=== PATIENT | male | born 1975 | race Two or more races ===

== ENCOUNTER 2019-11-17 11:07 | Emergency (ER) | payer MEDICAID ==
[~2019-11-17] VITALS: Ht 167.6 cm; Wt 68.5 kg
[~2019-11-17 11:07] MED LIST: UNOBMED
[2019-11-17 11:16] VITALS: BP 137/87
--- NOTE | 2019-11-17 11:27 | NUR ---
ED Nurse Note: Pt walked in due to left arm injury and pain. per pt, he was hanging from a wall and fell (about 9 foot) and landed on the ground. Denies head injury. States he heard a ''popping sound'' from his left shoulder. AAO x4 and ambulatory.
[2019-11-17] MEDS ORDERED: Morphine Sulfate 4mg/ml Inj (IV USE ONLY) ONE (11:28)
--- NOTE | 2019-11-17 11:28 | Emergency Room Report ---
History of Present Illness General Chief Complaint: Upper Extremity Injury Source: Patient Present Illness HPI Disclaimer: Please note that this report is being documented using DRAGON technology. This can lead to erroneous entry secondary to incorrect interpretation by the dictating instrument. HPI: 44-year-old male presents for evaluation of left shoulder pain. The patient was hopping a fence last night hanging from the top of the fence approximately 9 feet off the ground. He felt a popping sensation his left shoulder and dropped to the ground. There is no head injury or impact on the shoulder itself. Noted significant 10/10 pain that radiated down the left arm. Denies numbness or tingling. Has full strength in the hand, wrist, elbow though limited due to pain. Limitation range of motion in the elbow due to pain. No limitation at the wrist or hand. No other injuries reported. No prior history of injury. PMH: Denies PSH: Denies Allergies: Denies Social Hx: Denies Allergies: Coded Allergies: NO KNOWN ALLERGIES (Verified Allergy, Unknown, 07/04/19) COVID-19 Screening Contact w/high risk pt: No Recent Travel to affected area: No Experienced COVID-19 symptoms?: No Nursing Documentation-PMH Past Medical History: No History, Except For Review of Systems All Other Systems: negative except mentioned in HPI Physical Exam Vital Signs Date Time Temp Pulse Resp B/P (MAP) Pulse Ox O2 Delivery O2 Flow Rate FiO2 11/17/19 11:16 97.9 90 16 137/87 (104) 97 Room Air General: Awake and alert, no acute distress HEENT: NC/AT. EOMI. Resp: Normal work of breathing Skin: Intact. No abrasions, laceration or rash over the exposed skin MSK: Normal tone and bulk. Moving all extremities. No obvious deformity. Patient holding his left arm in flexion across his body. No step-off or palpable deformity. Significant pain with palpation over the anterior and superior portion of the left shoulder. Sensation intact over the deltoid. Able to pronate, supinate, flex and extend at the wrist. Able to flex and extend all digits. Brisk capillary refill and 2+ radial pulse. Neuro: Awake and alert. Mentating appropriately Medical Decision Making Diagnostic Impression: Primary Impression: Shoulder injury ER Course 44-year-old male presents for evaluation of left shoulder pain. Concern for fracture dislocation and x-ray was obtained. No current dislocation and no fracture identified. Patient is neurovascularly intact. I suspect that he dislocated his shoulder while hanging yesterday and then relocated spontaneously. Will place in an immobilizer discharged with pain medication and have him follow-up with orthopedic surgery on an outpatient basis. We discussed reasons to return to the emergency department and need for reevaluation with orthopedic surgery. Also discussed limiting physical activity until he is cleared to return by physician. He understands and agrees with the treatment plan will be discharged home. Other X-Ray Diagnostic Results Other X-Ray Diagnostic Results : X-Ray ordered: Left shoulder # of Views/Limited Vs Complete: 3 View Indication: Pain EP Interpretation: Yes Interpretation: no dislocation, no soft tissue swelling, no fractures Impression: No acute disease Electronically Signed by: Electronically signed by Dr. Jet Diaz Last Vital Signs Date Time Temp Pulse Resp B/P (MAP) Pulse Ox O2 Delivery O2 Flow Rate FiO2 11/17/19 11:16 97.9 90 16 137/87 (104) 97 Room Air Disposition: HOME, SELF-CARE Condition: Stable Scripts Hydrocodone Bit/Acetaminophen 5-325* (NORCO 5-325 TABLET*) 1 Each Tablet 1 TAB ORAL Q6H PRN for FOR PAIN, #10 TAB 0 Refills Prov: Jet Diaz MD 11/17/19 Ibuprofen* (MOTRIN*) 600 Mg Tablet 600 MG ORAL Q6H PRN for For Pain, #30 TAB 0 Refills Prov: Jet Diaz MD 11/17/19 Jet Diaz MD Nov 17, 2019 11:28
[2019-11-17] MEDS ORDERED: Morphine Sulfate 2mg/ml Inj(IV/IM USE ONLY) IM ONE (11:30)
[2019-11-17] MEDS ORDERED: Morphine Sulfate 4mg/ml Inj (IV USE ONLY) IVP ONE (11:45)
--- NOTE | 2019-11-17 12:22 | Diagnostic Imaging Report ---
Indication: Left shoulder pain, trauma Technique: 3 views of the left shoulder Comparison: none Findings: No acute fractures. No dislocations. The joint spaces are preserved Impression: Negative
[2019-11-17] MEDS ORDERED: IBUPROFEN600 M1 ORAL (12:29)
[2019-11-17] MEDS ORDERED: NORCO 5-325 TA1 EAC1 ORAL (12:29)
[2019-11-17 12:49] VITALS: BP 124/85
--- NOTE | 2019-11-17 12:49 | NUR ---
ER DISCHARGE NOTE: Patient is cleared to be discharged per ERMD, pt is aox4, on room air, with stable vital signs. pt was given dc and prescription instructions, pt was able to verbalize understanding, pt id band and iv site removed without complications. pt is able to ambulate with steady gait. pt took all belongings.
== END 2019-11-17 12:49 | disposition home or self-care (01) ==
LOC: EMR 11:44
DX: S49.92XA Unspecified injury of left shoulder and upper arm, initial encounter (principal); X58.XXXA Exposure to other specified factors, initial encounter; Y92.9 Unspecified place or not applicable
CPT/HCPCS: 29105; 73030; 96374; J2270; Z7502; 99284

== ENCOUNTER 2020-03-15 20:27 | Inpatient (IN) | payer MEDICAID, OTHER ==
[~2020-03-15] VITALS: Ht 167.6 cm; Wt 67.6 kg
[~2020-03-15 20:27] MED LIST changes: +IBUPROFEN600 M1 ORAL; +NORCO 5-325 TA1 EAC1 ORAL
[2020-03-15 20:30] VITALS: BP 135/100
--- NOTE | 2020-03-15 21:11 | Emergency Room Report ---
History of Present Illness General Chief Complaint: Substance Abuse Source: Patient, Medical Record, EMS (Nelly CoronaVicente ) Present Illness HPI This patient is brought in in custody by [place] police department. When this patient was being booked, it was noted that he had an elevated heart rate. The [place] police department personnel were concerned about his vital signs and wanted him to be assessed to be cleared for booking. The patient himself is intoxicated and unable to articulate any specific complaints. (Nelly CoronaVicente ) Allergies: Coded Allergies: NO KNOWN ALLERGIES (Verified Allergy, Unknown, 07/04/19) UNABLE TO ASSESS (Unverified , 03/15/20) COVID-19 Screening Contact w/high risk pt: No Recent Travel to affected area: No Experienced COVID-19 symptoms?: No COVID-19 Testing performed [employer] PROGRAM SPECIALIST: No (Nelly CoronaVicente ) Patient History Past Medical History: see triage record, HIV, other - HCV Social History: Reports: drug use Reviewed Nursing Documentation: PMH: Agreed; PSxH: Agreed (Nelly CoronaVicente ) Review of Systems All Other Systems: negative except mentioned in HPI (Nelly CoronaVicente ) Physical Exam Vital Signs Date Time Temp Pulse Resp B/P (MAP) Pulse Ox O2 Delivery O2 Flow Rate FiO2 03/15/20 20:21 99.0 124 16 135/100 (112) 98 Room Air Sp02 EP Interpretation: reviewed, normal General Appearance: no apparent distress, alert, GCS 15, non-toxic Head: normocephalic, atraumatic Eyes: bilateral eye normal inspection, bilateral eye PERRL ENT: hearing grossly normal, normal pharynx, no angioedema, normal voice Neck: full range of motion, supple/symm/no masses Respiratory: chest non-tender, lungs clear, normal breath sounds, speaking full sentences Cardiovascular #1: regular rate, rhythm, no edema Gastrointestinal: normal bowel sounds, non tender, soft, non-distended, no guarding, no rebound Rectal: deferred Genitourinary: normal inspection, no CVA tenderness Musculoskeletal: back normal, normal range of motion, calf tenderness, gait/ station normal, non-tender Neurologic: alert, motor strength/tone normal, oriented x3, sensory intact, responsive, speech normal Psychiatric: judgement/insight normal, memory normal, mood/affect normal, no suicidal/homicidal ideation Reflexes: 3+ bicep (R), 3+ bicep (L), 3+ tricep (R), 3+ tricep (L), 3+ knee (R) , 3+ knee (L) Lymphatic: no adenopathy (Nelly Corona ) Procedures Critical Care Time Critical Care Time Total critical care time: Approximately 45 minutes Due to a high probability of clinically significant, life threatening deterioration, the patient required the highest level of preparedness to intervene emergently and I personally spent this critical care time directly and personally managing the patient. This critical care time included obtaining a history, examining the patient, pulse oximetry, ordering and reviewing studies , ordering treatments, evaluating response to treatment and updating management plan as needed, frequent reassessment and discussion with other providers as well as arranging for ultimate disposition. This critical to care time was performed to assess and manage the high probability of life-threatening deterioration that could result in multiorgan failure. This critical care time is separate from the separately billable procedures and treating other patients. (Jet Diaz MD) Medical Decision Making Diagnostic Impression: Primary Impression: Drug abuse Additional Impressions: Respiratory failure Rhabdomyolysis ER Course Assumed care of the patient from the previous provider at approximately 2300 hrs. Please refer to initial note for full history and physical exam. Briefly, this is a 44-year-old male presenting originally with [employer] on suspicion of trespassing however the patient is not under arrest and appears that this was a mistaken identity. He was found to have acute kidney injury likely secondary to rhabdomyolysis from methamphetamine use which he admits. CT scan of the head was negative. The patient started on IV fluids and admitted to panel physician, Dr. Morin. (Jet Diaz MD) Last Vital Signs Date Time Temp Pulse Resp B/P (MAP) Pulse Ox O2 Delivery O2 Flow Rate FiO2 03/15/20 20:30 124 16 Room Air 03/15/20 20:30 99.0 135/100 98 (Nelly Corona DO) Disposition: ADMITTED INPATIENT Condition: Serious Referrals: NOT CHOSEN IPA/,REFERRING (PCP) Nelly Corona Vicente DOMINGUEZ Mar 15, 2020 21:11 Jet Diaz MD Mar 16, 2020 03:23
[2020-03-15 21:33] LABS: HEMATOCRIT 45.6 % (42.0-52.0); HEMOGLOBIN 14.9 G/DL (14.2-18.0); MEAN CORPUSCULAR VOLUME 97 FL (80-99); PLATELET COUNT 177 K/UL (150-450); RED BLOOD COUNT 4.69 M/UL (4.70-6.10); RED CELL DISTRIBUTION WIDTH 12.2 % (11.6-14.8); WHITE BLOOD COUNT 10.5 K/UL (4.8-10.8)
[2020-03-15 21:35] LABS: BASOPHILS % (AUTO) 0.2 % (0.0-2.0); LYMPHOCYTES % (AUTO) 9.2 % (20.0-45.0); MONOCYTES % (AUTO) 5.6 % (1.0-10.0)
[2020-03-15 21:45] LABS: ANION GAP 15 mmol/L (5-15); BLOOD UREA NITROGEN 31 mg/dL (7-18); CALCIUM 9.3 MG/DL (8.5-10.1); CARBON DIOXIDE 24 MMOL/L (21-32); CHLORIDE 101 MMOL/L (98-107); CREATININE 4.1 MG/DL (0.55-1.30); POTASSIUM 4.9 MMOL/L (3.5-5.1); SODIUM 140 MMOL/L (136-145)
[2020-03-15 21:50] LABS: ALANINE AMINOTRANSFERASE 59 U/L (12-78); ALBUMIN 4.7 G/DL (3.4-5.0); ALBUMIN/GLOBULIN RATIO 0.9 (1.0-2.7); ALKALINE PHOSPHATASE 108 U/L (46-116); ASPARTATE AMINO TRANSFERASE 93 U/L (15-37); BILIRUBIN,TOTAL 0.6 MG/DL (0.2-1.0)
--- NOTE | 2020-03-15 23:01 | Diagnostic Imaging Report ---
EXAM: CT Head Without Intravenous Contrast CLINICAL HISTORY: AMS TECHNIQUE: Axial computed tomography images of the head/brain without intravenous contrast. CTDI is 53.4 mGy and DLP is 1045.5 mGy-cm. One or more of the following dose reduction techniques were used: automated exposure control, adjustment of the mA and/or kV according to patient size, use of iterative reconstruction technique. COMPARISON: No relevant prior studies available. FINDINGS: Brain: No hemorrhage. No edema. Ventricles: No ventriculomegaly. Bones/joints: No acute fracture. Soft tissues: Unremarkable. Sinuses: No acute sinusitis. Mastoid air cells: No mastoid effusion. IMPRESSION: No acute intracranial process. MRI is more sensitive if warranted.
[2020-03-15 23:19] LABS: CREATINE KINASE 1537 U/L (26-308)
[2020-03-15 23:28] LABS: APPEARANCE,URINE CLEAR; BILIRUBIN, URINE NEGATIVE (NEGATIVE); GLUCOSE, URINE (UA) NEGATIVE (NEGATIVE); KETONES,URINE NEGATIVE (NEGATIVE); LEUKOCYTE ESTERASE ,URINE NEGATIVE (NEGATIVE); NITRITE,URINE NEGATIVE (NEGATIVE); PH,URINE 6 (4.5-8.0); PROTEIN,URINE 3+ (NEGATIVE); UROBILINOGEN,URINE NORMAL MG/DL (0.0-1.0)
[2020-03-15 23:32] LABS: COLOR,URINE YELLOW
[2020-03-15 23:35] VITALS: BP 141/96
[2020-03-16 00:30] VITALS: BP 156/69
[2020-03-16 04:00] VITALS: BP 147/91
[2020-03-16] MEDS ORDERED: HYDROcodone/Acetamin 5/325 tab ORAL PRN (06:30)
[2020-03-16] MEDS ORDERED: D5 1/2NS 1,000 ML IV SCH (07:00)
[2020-03-16] MEDS ORDERED: Heparin 5000 units/ml inj SUBQ SCH (09:00)
--- NOTE | 2020-03-16 18:07 | History & Physical ---
History and Physical History & Physicial patient left hospital AMA prior my visit. Bassem Morin MD Mar 16, 2020 18:07
--- NOTE | 2020-03-18 12:05 | Discharge Summary ---
Discharge Summary Discharge Summary _ DATE OF ADMISSION: 03/15/2020 DATE OF DISCHARGE: 03/16/2020 BRIEF HOSPITAL COURSE: Patient is a 44-year-old male, who was brought in by [employer] [place] [employer] to the hospital. When patient was being booked, he was noted to have an elevated heart rate. The [employer] personnel were concerned about his vital signs and wanted him to be assessed to be cleared for booking. The patient himself was intoxicated and unable to articulate any specific complaints. Upon evaluation at ER, blood pressure was 135/100, heart rate 124. Blood work showed no leukocytosis, creatinine elevated to 4.1. Total CK 1537. Urine toxicology was positive for amphetamine. Head CT did not show any acute intracranial process. He was started on IV fluids. He was admitted for drug abuse and rhabdomyolysis. Patient was taken off police custody. Patient was admitted to monitored floor. Full treatment was not carried out as patient left AGAINST MEDICAL ADVICE. FINAL DIAGNOSES: Renal failure Rhabdomyolysis Drug abuse DISPOSITION: Patient left AMA. I have been assigned to complete a discharge summary on this account, I was not involved with the patient's management.--YO Santiago Jacqueline Robles NP Mar 18, 2020 12:05
== END 2020-03-16 09:50 | disposition left against medical advice (07) | DRG 470 ==
LOC: EDBD 20:27 → EMR 20:50 → 4E 22:40 → EDBEDREQ 23:43
DX: N19 Unspecified kidney failure (principal); M62.82 Rhabdomyolysis; F15.129 Other stimulant abuse with intoxication, unspecified
CPT/HCPCS: 36415; 70450; 80053; 80307; 81003; 82550; 82570; 83935; 84133; 84300; 85025; 96360; 96361; 99291; J7030

== ENCOUNTER 2020-03-18 00:01 | Inpatient (IN) | payer MEDICAID, OTHER ==
[~2020-03-18] VITALS: Ht 162.6 cm; Wt 151.0 kg
[2020-03-18] VITALS (7 sets, daily range): BP systolic 112–126; BP diastolic 67–77
--- NOTE | 2020-03-18 00:41 | Emergency Room Report ---
History of Present Illness General Chief Complaint: Male Urogenital Problems Present Illness HPI 44-year-old male with history of HIV noncompliant with medications, recent diagnosis 2 days ago of acute kidney injury and methamphetamine use and rhabdomyolysis, here with lightheadedness. The patient was admitted 24 hours ago to the hospital for an ANTONIO in the setting of rhabdomyolysis. However soon after he arrived on the floor he left AGAINST MEDICAL ADVICE before he was seen by the admitting physician. Patient says that he has been sleeping on the street for the past 24 hours. He says that now he is feeling lightheaded. He said that his urine was also dark today. Denies fevers, chills, headache, vision changes, focal numbness or weakness, chest pain, palpitation, shortness of breath, back pain, abdominal pain, nausea, vomiting, diarrhea, dysuria. Allergies: Coded Allergies: NO KNOWN ALLERGIES (Verified Allergy, Unknown, 07/04/19) COVID-19 Screening Contact w/high risk pt: No Recent Travel to affected area: No Experienced COVID-19 symptoms?: No COVID-19 Testing performed SEAM STAYER: No Nursing Documentation-PMH Hx Cardiac Problems: No - hep c, hiv Hx Cancer: No Hx Gastrointestinal Problems: No Hx Neurological Problems: Yes Hx Concentration Difficulty: Yes Review of Systems All Other Systems: negative except mentioned in HPI Physical Exam Vital Signs Date Time Temp Pulse Resp B/P (MAP) Pulse Ox O2 Delivery O2 Flow Rate FiO2 03/18/20 00:16 98.6 70 22 114/67 (83) 98 Room Air Sp02 EP Interpretation: reviewed, normal General Appearance: no apparent distress, alert, non-toxic Head: normocephalic, atraumatic Eyes: bilateral eye normal inspection, bilateral eye PERRL ENT: hearing grossly normal, normal pharynx, no angioedema, normal voice Neck: full range of motion, supple/symm/no masses Respiratory: chest non-tender, lungs clear, normal breath sounds, speaking full sentences Cardiovascular #1: regular rate, rhythm, no edema Cardiovascular #2: 2+ carotid (R), 2+ carotid (L), 2+ radial (R), 2+ radial (L) , 2+ dorsalis pedis (R), 2+ dorsalis pedis (L) Gastrointestinal: normal bowel sounds, non tender, soft, non-distended, no guarding, no rebound Rectal: deferred Genitourinary: normal inspection, no CVA tenderness Musculoskeletal: back normal, normal range of motion, calf tenderness, gait/ station normal, non-tender Neurologic: alert, motor strength/tone normal, oriented x3, sensory intact, responsive, speech normal Psychiatric: judgement/insight normal, memory normal, mood/affect normal, no suicidal/homicidal ideation, other - Appears anxious and slightly agitated, but is redirectable and cooperative with examination Lymphatic: no adenopathy Medical Decision Making Diagnostic Impression: Primary Impression: Substance abuse Additional Impressions: Rhabdomyolysis ANTONIO (acute kidney injury) ER Course Laboratory Tests Test 03/18/20 00:40 White Blood Count 5.6 K/UL (4.8-10.8) Red Blood Count 4.57 M/UL (4.70-6.10) L Hemoglobin 14.8 G/DL (14.2-18.0) Hematocrit 41.9 % (42.0-52.0) L Mean Corpuscular Volume 92 FL (80-99) Mean Corpuscular Hemoglobin 32.4 PG (27.0-31.0) H Mean Corpuscular Hemoglobin Concent 35.2 G/DL (32.0-36.0) Red Cell Distribution Width 10.8 % (11.6-14.8) L Platelet Count 175 K/UL (150-450) Mean Platelet Volume 7.1 FL (6.5-10.1) Neutrophils (%) (Auto) 46.8 % (45.0-75.0) Lymphocytes (%) (Auto) 40.8 % (20.0-45.0) Monocytes (%) (Auto) 9.0 % (1.0-10.0) Eosinophils (%) (Auto) 2.7 % (0.0-3.0) Basophils (%) (Auto) 0.7 % (0.0-2.0) Urine Color Yellow Urine Appearance Clear Urine pH 5 (4.5-8.0) Urine Specific [place] 1.025 (1.005-1.035) Urine Protein 1+ (NEGATIVE) H Urine Glucose (UA) 1+ (NEGATIVE) H Urine Ketones Negative (NEGATIVE) Urine Blood 2+ (NEGATIVE) H Urine Nitrite Negative (NEGATIVE) Urine Bilirubin Negative (NEGATIVE) Urine Urobilinogen Normal MG/DL (0.0-1.0) Urine Leukocyte Esterase Negative (NEGATIVE) Urine RBC 5-10 /HPF (0 - 0) H Urine WBC 0-2 /HPF (0 - 0) Urine Squamous Epithelial Cells Occasional /LPF Urine Amorphous Sediment Few /LPF (NONE) H Urine Bacteria Few /HPF (NONE) Urine Mucus Few /LPF (NONE/OCC) H Sodium Level 139 MMOL/L (136-145) Potassium Level 3.5 MMOL/L (3.5-5.1) Chloride Level 102 MMOL/L (98-107) Carbon Dioxide Level 31 MMOL/L (21-32) Anion Gap 6 mmol/L (5-15) Blood Urea Nitrogen 37 mg/dL (7-18) H Creatinine 1.9 MG/DL (0.55-1.30) H Estimated Glomerular Filtration Rate 39.1 mL/min (>60) Glucose Level 77 MG/DL (74-106) Calcium Level 8.8 MG/DL (8.5-10.1) Total Bilirubin 0.6 MG/DL (0.2-1.0) Aspartate Amino Transferase (AST) 102 U/L (15-37) H Alanine Aminotransferase (ALT) 70 U/L (12-78) Alkaline Phosphatase 136 U/L (46-116) H Total Creatine Kinase 1592 U/L (26-308) H Total Protein 8.5 G/DL (6.4-8.2) H Albumin 3.9 G/DL (3.4-5.0) Globulin 4.6 g/dL Albumin/Globulin Ratio 0.8 (1.0-2.7) L Urine Opiates Screen Negative (NEGATIVE) Urine Barbiturates Screen Negative (NEGATIVE) Phencyclidine (PCP) Screen Negative (NEGATIVE) Urine Amphetamines Screen Positive (NEGATIVE) H Urine Benzodiazepines Screen Negative (NEGATIVE) Urine Cocaine Screen Negative (NEGATIVE) Urine Marijuana (THC) Screen Negative (NEGATIVE) Serum Alcohol < 3 mg/dL 44-year-old male here after leaving his medical advice yesterday after being diagnosed with rhabdomyolysis and acute kidney injury. Patient said "my urine was dark so I came back." He was in no distress in the emergency department and ambulating throughout the ER and tolerating p.o. without any difficulty whatsoever. CBC unremarkable. CMP shows acute kidney injury but slightly improved from his most recent lab results yesterday. He had elevated creatinine kinase was also was slightly improved from yesterday but still highly elevated. Patient received 2 L of IV normal saline in the emergency department. He was once again admitted for rhabdomyolysis and acute kidney injury. Total critical care time: Approximately 30 minutes Due to a high probability of clinically significant, life threatening deterioration, the patient required the highest level of preparedness to intervene emergently and I personally spent this critical care time directly and personally managing the patient. This critical care time included obtaining a history, examining the patient, pulse oximetry, ordering and reviewing studies , ordering treatments, evaluating response to treatment and updating management plan as needed, frequent reassessment and discussion with other providers as well as arranging for ultimate disposition. This critical to care time was performed to assess and manage the high probability of life-threatening deterioration that could result in multiorgan failure. This critical care time is separate from the separately billable procedures and treating other patients. Last Vital Signs Date Time Temp Pulse Resp B/P (MAP) Pulse Ox O2 Delivery O2 Flow Rate FiO2 03/18/20 00:16 98.6 70 22 114/67 (83) 98 Room Air José West M.D. Mar 18, 2020 00:41
[2020-03-18 00:54] LABS: APPEARANCE,URINE CLEAR; BILIRUBIN, URINE NEGATIVE (NEGATIVE); COLOR,URINE YELLOW; GLUCOSE, URINE (UA) 1+ (NEGATIVE); KETONES,URINE NEGATIVE (NEGATIVE); LEUKOCYTE ESTERASE ,URINE NEGATIVE (NEGATIVE); NITRITE,URINE NEGATIVE (NEGATIVE); PH,URINE 5 (4.5-8.0); PROTEIN,URINE 1+ (NEGATIVE); UROBILINOGEN,URINE NORMAL MG/DL (0.0-1.0)
[2020-03-18 00:56] LABS: BASOPHILS % (AUTO) 0.7 % (0.0-2.0); EOSINOPHILS % (AUTO) 2.7 % (0.0-3.0); HEMATOCRIT 41.9 % (42.0-52.0); HEMOGLOBIN 14.8 G/DL (14.2-18.0); LYMPHOCYTES % (AUTO) 40.8 % (20.0-45.0); MEAN CORPUSCULAR VOLUME 92 FL (80-99); NEUTROPHILS % (AUTO) 46.8 % (45.0-75.0); PLATELET COUNT 175 K/UL (150-450); RED BLOOD COUNT 4.57 M/UL (4.70-6.10); RED CELL DISTRIBUTION WIDTH 10.8 % (11.6-14.8); WHITE BLOOD COUNT 5.6 K/UL (4.8-10.8)
[2020-03-18 01:05] LABS: ANION GAP 6 mmol/L (5-15); BLOOD UREA NITROGEN 37 mg/dL (7-18); CALCIUM 8.8 MG/DL (8.5-10.1); CARBON DIOXIDE 31 MMOL/L (21-32); CHLORIDE 102 MMOL/L (98-107); CREATININE 1.9 MG/DL (0.55-1.30); POTASSIUM 3.5 MMOL/L (3.5-5.1); SODIUM 139 MMOL/L (136-145)
[2020-03-18 01:19] LABS: ALANINE AMINOTRANSFERASE 70 U/L (12-78); ALBUMIN 3.9 G/DL (3.4-5.0); ALBUMIN/GLOBULIN RATIO 0.8 (1.0-2.7); ALKALINE PHOSPHATASE 136 U/L (46-116); ASPARTATE AMINO TRANSFERASE 102 U/L (15-37); BILIRUBIN,TOTAL 0.6 MG/DL (0.2-1.0); CREATINE KINASE 1592 U/L (26-308)
[2020-03-18] MEDS ORDERED: Omnipaque 350 100ml vial INJ PRN (02:00)
[2020-03-18 06:02] LABS: EOSINOPHILS % (AUTO) 3.5 % (0.0-3.0); HEMATOCRIT 40.3 % (42.0-52.0); HEMOGLOBIN 13.8 G/DL (14.2-18.0); LYMPHOCYTES % (AUTO) 40.3 % (20.0-45.0); MEAN CORPUSCULAR VOLUME 93 FL (80-99); MONOCYTES % (AUTO) 9.6 % (1.0-10.0); NEUTROPHILS % (AUTO) 45.6 % (45.0-75.0); PLATELET COUNT 152 K/UL (150-450); RED BLOOD COUNT 4.35 M/UL (4.70-6.10); RED CELL DISTRIBUTION WIDTH 10.8 % (11.6-14.8); WHITE BLOOD COUNT 4.2 K/UL (4.8-10.8)
[2020-03-18 06:10] LABS: ALANINE AMINOTRANSFERASE 54 U/L (12-78); ALBUMIN 3.2 G/DL (3.4-5.0); ALBUMIN/GLOBULIN RATIO 0.8 (1.0-2.7); ALKALINE PHOSPHATASE 111 U/L (46-116); ANION GAP 7 mmol/L (5-15); ASPARTATE AMINO TRANSFERASE 78 U/L (15-37); BILIRUBIN,TOTAL 0.3 MG/DL (0.2-1.0); BLOOD UREA NITROGEN 32 mg/dL (7-18); CALCIUM 7.9 MG/DL (8.5-10.1); CARBON DIOXIDE 27 MMOL/L (21-32); CHLORIDE 105 MMOL/L (98-107); CREATININE 1.4 MG/DL (0.55-1.30); PHOSPHORUS 6.5 MG/DL (2.5-4.9); POTASSIUM 3.8 MMOL/L (3.5-5.1); SODIUM 139 MMOL/L (136-145)
[2020-03-18] MEDS ORDERED: D5 1/2NS 1,000 ML IV SCH (06:45)
[2020-03-18] MEDS ORDERED: D5 1/2NS w/KCL 10meq 1,000 ML IV SCH (07:00)
[2020-03-18 08:38] LABS: CREATINE KINASE 998 U/L (26-308); PHOSPHORUS 3.9 MG/DL (2.5-4.9)
--- NOTE | 2020-03-18 09:18 | Consultation ---
Consult Note Consult Note I am asked to evaluate the patient at the request of Dr. Luis for renal failure 44-year-old male with history of HIV noncompliant with medications, recent diagnosis 2 days ago of acute kidney injury and methamphetamine use and rhabdomyolysis, here with lightheadedness. The patient was admitted 24 hours ago to the hospital for an ANTONIO in the setting of rhabdomyolysis. However soon after he arrived on the floor he left AGAINST MEDICAL ADVICE before he was seen by the admitting physician. Patient says that he has been sleeping on the street for the past 24 hours. He says that now he is feeling lightheaded. He said that his urine was also dark today. Denies fevers, chills, headache, vision changes, focal numbness or weakness, chest pain, palpitation, shortness of breath, back pain, abdominal pain, nausea, vomiting, diarrhea, dysuria. NO KNOWN ALLERGIES (Verified Allergy, Unknown, 07/04/19) COVID-19 Screening Contact w/high risk pt: No Recent Travel to affected area: No Experienced COVID-19 symptoms?: No COVID-19 Testing performed MOTOR[employer]ED [employer] COMMANDING OFFICER: No Hx Cardiac Problems: No - hep c, hiv Hx Neurological Problems: Yes Hx Concentration Difficulty: Yes Assessment/Plan ANTONIO, patient admitted 2 days ago with creatinine of 4 but signed AMA. Presents with serum creatinine of 1.9 Rhabdomyolysis HIV positive Hepatitis C per history Substance abuse Suggestions Vigorous hydration Monitor renal parameters and CPK Per orders Roberto Stewart MD Mar 18, 2020 09:18
[2020-03-18] MEDS ORDERED: HydrALAZINE 25mg tab ORAL PRN (09:28)
[2020-03-18] MEDS: Heparin 5000 units/ml inj SUBQ SCH ×2 (10:58→21:37)
[2020-03-18] MEDS: D5 1/2NS 1,000 ML IV SCH ×2 (10:59→17:09)
--- NOTE | 2020-03-18 12:44 | History and Physical Report ---
DATE OF ADMISSION: 03/18/2020 TIME SEEN: 8 a.m. CONSULTANTS: 1. Roxanna Hanson MD. 2. Roberto Stewart MD. CHIEF COMPLAINT: Drug abuse, ANTONIO, rhabdomyolysis. BRIEF HISTORY: The patient is a 44-year-old male, who lives in his car presents to [place] ER last night with increased weakness, lethargy, slightly confused was diagnosed with ANTONIO, rhabdo, and drug abuse and admitted to medical floor. Currently, calm, in bed, no complaints. No chest pain, no shortness of breath. No nausea, vomiting, or diarrhea. PAST MEDICAL HISTORY: Includes HIV. PAST SURGICAL HISTORY: MEDICATIONS: Heparin, dextrose, IV fluids. ALLERGIES: Denies. SOCIAL HISTORY: No smoking. Positive alcohol. Positive meth use. OBJECTIVE: GENERAL: Calm in bed, oriented x2, in no acute distress. VITAL SIGNS: Temperature is 97 degrees, pulse 73, respiratory rate 18, blood pressure 122/77 CARDIOVASCULAR: No murmur. LUNGS: Distant and clear. ABDOMEN: Bowel sounds positive. Soft, nontender, nondistended. EXTREMITIES: No cyanosis or edema. NEUROLOGIC: The patient moves all extremities, slightly weak. LABORATORY DATA: Labs at this time show white count 4.2, hemoglobin and hematocrit 13/40, platelets 152. BMP shows BUN and creatinine 32 and 1.4. Calcium 7.9, phosphorus 6.5. AST 78. Albumin 3.2. Urinalysis show 2+ blood, 1+ glucose, 1+ protein. Urine tox positive for amphetamine. ASSESSMENT: 1. ANTONIO. 2. Drug abuse. 3. Rhabdomyolysis. PLAN: 1. Detox. 2. Dietary followup. 3. IV fluids. 4. CBC and BMP in the morning. 5. Psych and Nephrology followup. Andrea Luis D.O. DR: Timur JOB#: [id number] CC:
[2020-03-18] MEDS: Docusate 100mg cap ORAL SCH ×2 (13:44→17:15)
[2020-03-18] MEDS ORDERED: D5 1/2NS 1000ml IV ONE (15:32)
[2020-03-19] VITALS: BP 121/69
[2020-03-19] MEDS: D5 1/2NS 1,000 ML IV SCH ×3 (02:27→10:58)
[2020-03-19 04:00] VITALS: BP 113/76
[2020-03-19 06:02] LABS: EOSINOPHILS % (AUTO) 3.3 % (0.0-3.0); HEMATOCRIT 42.3 % (42.0-52.0); HEMOGLOBIN 14.4 G/DL (14.2-18.0); LYMPHOCYTES % (AUTO) 36.8 % (20.0-45.0); MEAN CORPUSCULAR VOLUME 93 FL (80-99); MONOCYTES % (AUTO) 9.4 % (1.0-10.0); NEUTROPHILS % (AUTO) 49.5 % (45.0-75.0); PLATELET COUNT 160 K/UL (150-450); RED BLOOD COUNT 4.56 M/UL (4.70-6.10); RED CELL DISTRIBUTION WIDTH 10.9 % (11.6-14.8); WHITE BLOOD COUNT 4.1 K/UL (4.8-10.8)
[2020-03-19 06:10] LABS: ALANINE AMINOTRANSFERASE 49 U/L (12-78); ALBUMIN 3.1 G/DL (3.4-5.0); ALBUMIN/GLOBULIN RATIO 0.7 (1.0-2.7); ALKALINE PHOSPHATASE 121 U/L (46-116); ANION GAP 5 mmol/L (5-15); ASPARTATE AMINO TRANSFERASE 46 U/L (15-37); BILIRUBIN,TOTAL 0.3 MG/DL (0.2-1.0); BLOOD UREA NITROGEN 20 mg/dL (7-18); CALCIUM 8.6 MG/DL (8.5-10.1); CARBON DIOXIDE 28 MMOL/L (21-32); CHLORIDE 104 MMOL/L (98-107); CHOLESTEROL 176 MG/DL (< 200); CREATININE 1.3 MG/DL (0.55-1.30); HDL CHOLESTEROL 53 MG/DL (40-60); POTASSIUM 4.2 MMOL/L (3.5-5.1); SODIUM 137 MMOL/L (136-145); TRIGLYCERIDES 110 MG/DL (30-150)
[2020-03-19 06:17] LABS: CREATINE KINASE 352 U/L (26-308); GAMMA GLUTAMYL TRANSPEPTIDASE 10 U/L (5-85); PHOSPHORUS 3.7 MG/DL (2.5-4.9)
[2020-03-19 08:00] VITALS: BP 125/74
[2020-03-19] MEDS: Docusate 100mg cap ORAL SCH ×3 (08:36→17:42)
[2020-03-19] MEDS: Heparin 5000 units/ml inj SUBQ SCH ×2 (08:38→20:42)
--- NOTE | 2020-03-19 08:49 | General Progress Note ---
Assessment/Plan Problem List: (1) Weak ICD Codes: R53.1 - Weakness SNOMED: 52551591 (2) Drug abuse ICD Codes: F19.10 - Other psychoactive substance abuse, uncomplicated SNOMED: 33671802 (3) ANTONIO (acute kidney injury) ICD Codes: N17.9 - Acute kidney failure, unspecified SNOMED: 83319479, 5483890 (4) Rhabdomyolysis ICD Codes: M62.82 - Rhabdomyolysis SNOMED: 709474057 Status: unchanged Assessment/Plan: pt diet detox ivf cbc bmp am Subjective Constitutional: Reports: weakness Allergies: Coded Allergies: NO KNOWN ALLERGIES (Verified Allergy, Unknown, 07/04/19) All Systems: reviewed and negative except above Subjective sleepy calm Objective Last 24 Hour Vital Signs Date Time Temp Pulse Resp B/P (MAP) Pulse Ox O2 Delivery O2 Flow Rate FiO2 03/19/20 08:00 97.7 68 18 125/74 (91) 97 03/19/20 04:00 98.6 77 16 113/76 (88) 98 03/19/20 00:00 98.4 74 15 121/69 (86) 98 03/18/20 21:00 Room Air 03/18/20 20:00 98.6 80 18 119/73 (88) 98 03/18/20 16:00 97.4 73 16 126/74 (91) 100 03/18/20 13:45 98.1 77 16 112/70 (84) 99 03/18/20 10:54 97.8 67 16 113/76 (88) 100 03/18/20 09:00 Room Air Intake and Output 03/18/20 03/19/20 19:00 07:00 Intake Total 2100 ml 2000 ml Balance 2100 ml 2000 ml Intake Oral 1000 ml 750 ml IV Total 1100 ml 1250 ml # Voids 4 8 # Bowel Movements 2 Laboratory Tests 03/19/20 05:20: White Blood Count 4.1L, Red Blood Count 4.56L, Hemoglobin 14.4, Hematocrit 42.3 , Mean Corpuscular Volume 93, Mean Corpuscular Hemoglobin 31.5H, Mean Corpuscular Hemoglobin Concent 34.0, Red Cell Distribution Width 10.9L, Platelet Count 160, Mean Platelet Volume 7.3, Neutrophils (%) (Auto) 49.5, Lymphocytes (%) (Auto) 36.8, Monocytes (%) (Auto) 9.4, Eosinophils (%) (Auto) 3.3H, Basophils (%) (Auto) 1.0, Sodium Level 137, Potassium Level 4.2, Chloride Level 104, Carbon Dioxide Level 28, Anion Gap 5, Blood Urea Nitrogen 20H, Creatinine 1.3, Estimat Glomerular Filtration Rate > 60, Glucose Level 95, Uric Acid 3.2, Calcium Level 8.6, Phosphorus Level 3.7, Magnesium Level 1.7L, Total Bilirubin 0.3, Gamma Glutamyl Transpeptidase 10, Aspartate Amino Transf (AST/ SGOT) 46H, Alanine Aminotransferase (ALT/SGPT) 49, Alkaline Phosphatase 121H, Total Creatine Kinase 352H, C-Reactive Protein, Quantitative < 0.4, Total Protein 7.3, Albumin 3.1L, Globulin 4.2, Albumin/Globulin Ratio 0.7L, Triglycerides Level 110, Cholesterol Level 176, LDL Cholesterol 102H, HDL Cholesterol 53, Cholesterol/HDL Ratio 3.3 Height (Feet): 5 Height (Inches): 4.00 Weight (Pounds): 150 General Appearance: lethargic EENT: normal ENT inspection Neck: normal alignment Cardiovascular: normal peripheral pulses, normal rate, regular rhythm Respiratory/Chest: chest wall non-tender, lungs clear, normal breath sounds Abdomen: normal bowel sounds, non tender, soft Extremities: normal inspection Edema: no edema noted Arm (L), no edema noted Arm (R), no edema noted Leg (L), no edema noted Leg (R), no edema noted Pedal (L), no edema noted Pedal (R), no edema noted Generalized Neurologic: motor weakness Skin: normal pigmentation, warm/dry Andrea Luis DO Mar 19, 2020 08:49
--- NOTE | 2020-03-19 10:20 | Nephrology Progress Note ---
Assessment/Plan Problem List: (1) ANTONIO (acute kidney injury) Assessment: Resolved (2) Rhabdomyolysis Assessment: Improving (3) Substance abuse Assessment ANTONIO, patient admitted 2 days ago with creatinine of 4 but signed AMA. Presents with serum creatinine of 1.9 Rhabdomyolysis HIV positive Hepatitis C per history Substance abuse Plan Hydrate: P.o. and IV Monitor renal parameters and CPK: Improving Mag supplement Per orders Subjective ROS Limited/Unobtainable: No Constitutional: Reports: malaise Objective Objective Last 24 Hour Vital Signs Date Time Temp Pulse Resp B/P (MAP) Pulse Ox O2 Delivery O2 Flow Rate FiO2 03/19/20 09:26 Room Air 03/19/20 08:00 97.7 68 18 125/74 (91) 97 03/19/20 04:00 98.6 77 16 113/76 (88) 98 03/19/20 00:00 98.4 74 15 121/69 (86) 98 03/18/20 21:00 Room Air 03/18/20 20:00 98.6 80 18 119/73 (88) 98 03/18/20 16:00 97.4 73 16 126/74 (91) 100 03/18/20 13:45 98.1 77 16 112/70 (84) 99 03/18/20 10:54 97.8 67 16 113/76 (88) 100 Intake and Output 03/18/20 03/19/20 19:00 07:00 Intake Total 2100 ml 2000 ml Balance 2100 ml 2000 ml Intake Oral 1000 ml 750 ml IV Total 1100 ml 1250 ml # Voids 4 8 # Bowel Movements 2 Current Medications Medications (Trade) Dose Ordered Sig/Jo Ann Route PRN Reason Start Time Stop Time Status Last Admin Dose Admin Dextrose/Sodium Chloride 1,000 ml @ 125 mls/hr Q8H IV 03/18/20 10:30 04/17/20 10:29 03/19/20 08:36 Docusate Sodium (Colace) 100 mg THREE TIMES A DAY ORAL 03/18/20 13:00 04/17/20 12:59 03/19/20 08:36 Heparin Sodium (Porcine) (Heparin 5000 units/ml) 5,000 units EVERY 12 HOURS SUBQ 03/18/20 09:00 05/02/20 08:59 03/19/20 08:38 Hydralazine HCl (Apresoline) 25 mg Q4H PRN ORAL Blood pressure over 160 systol 03/18/20 09:28 06/16/20 09:27 Magnesium Sulfate 100 ml @ 100 mls/hr Q1H IVPB 03/19/20 09:00 03/19/20 10:59 03/19/20 09:21 Pantoprazole (Protonix) 40 mg EVERY 12 HOURS ORAL 03/18/20 21:00 04/17/20 20:59 03/19/20 08:36 Laboratory Tests 03/19/20 05:20: White Blood Count 4.1L, Red Blood Count 4.56L, Hemoglobin 14.4, Hematocrit 42.3 , Mean Corpuscular Volume 93, Mean Corpuscular Hemoglobin 31.5H, Mean Corpuscular Hemoglobin Concent 34.0, Red Cell Distribution Width 10.9L, Platelet Count 160, Mean Platelet Volume 7.3, Neutrophils (%) (Auto) 49.5, Lymphocytes (%) (Auto) 36.8, Monocytes (%) (Auto) 9.4, Eosinophils (%) (Auto) 3.3H, Basophils (%) (Auto) 1.0, Sodium Level 137, Potassium Level 4.2, Chloride Level 104, Carbon Dioxide Level 28, Anion Gap 5, Blood Urea Nitrogen 20H, Creatinine 1.3, Estimat Glomerular Filtration Rate > 60, Glucose Level 95, Uric Acid 3.2, Calcium Level 8.6, Phosphorus Level 3.7, Magnesium Level 1.7L, Total Bilirubin 0.3, Gamma Glutamyl Transpeptidase 10, Aspartate Amino Transf (AST/ SGOT) 46H, Alanine Aminotransferase (ALT/SGPT) 49, Alkaline Phosphatase 121H, Total Creatine Kinase 352H, C-Reactive Protein, Quantitative < 0.4, Total Protein 7.3, Albumin 3.1L, Globulin 4.2, Albumin/Globulin Ratio 0.7L, Triglycerides Level 110, Cholesterol Level 176, LDL Cholesterol 102H, HDL Cholesterol 53, Cholesterol/HDL Ratio 3.3 Height (Feet): 5 Height (Inches): 4.00 Weight (Pounds): 150 General Appearance: no apparent distress Cardiovascular: normal rate - Rate 80s Abdomen: soft Roberto Stewart MD Mar 19, 2020 10:20
[2020-03-19 11:43] VITALS: BP 121/74
[2020-03-19] MEDS ORDERED: TRIUMEQ 600-501 EACH PO (15:54)
[2020-03-19 16:02] VITALS: BP 116/67
[2020-03-19] MEDS ORDERED: D5 1/2NS 1000ml IV ONE (18:11)
[2020-03-19 20:00] VITALS: BP 114/76
[2020-03-20] VITALS: BP 123/77
[2020-03-20] MEDS: D5 1/2NS 1,000 ML IV SCH ×2 (03:56→13:36)
[2020-03-20 04:00] VITALS: BP 131/96
[2020-03-20 06:11] LABS: BASOPHILS % (AUTO) 0.9 % (0.0-2.0); EOSINOPHILS % (AUTO) 3.9 % (0.0-3.0); HEMATOCRIT 42.4 % (42.0-52.0); HEMOGLOBIN 14.6 G/DL (14.2-18.0); LYMPHOCYTES % (AUTO) 38.9 % (20.0-45.0); MEAN CORPUSCULAR VOLUME 93 FL (80-99); MONOCYTES % (AUTO) 10.1 % (1.0-10.0); NEUTROPHILS % (AUTO) 46.2 % (45.0-75.0); PLATELET COUNT 158 K/UL (150-450); RED BLOOD COUNT 4.57 M/UL (4.70-6.10); RED CELL DISTRIBUTION WIDTH 10.8 % (11.6-14.8); WHITE BLOOD COUNT 4.2 K/UL (4.8-10.8)
[2020-03-20 06:45] LABS: ANION GAP 8 mmol/L (5-15); BLOOD UREA NITROGEN 22 mg/dL (7-18); CALCIUM 8.6 MG/DL (8.5-10.1); CARBON DIOXIDE 26 MMOL/L (21-32); CHLORIDE 104 MMOL/L (98-107); CREATININE 1.3 MG/DL (0.55-1.30); SODIUM 138 MMOL/L (136-145)
[2020-03-20 08:00] VITALS: BP 128/74
[2020-03-20] MEDS: Heparin 5000 units/ml inj SUBQ SCH ×2 (09:12→20:01)
[2020-03-20] MEDS: Docusate 100mg cap ORAL SCH ×3 (09:13→17:57)
[2020-03-20 12:00] VITALS: BP 125/73
--- NOTE | 2020-03-20 13:34 | General Progress Note ---
Assessment/Plan Problem List: (1) Weak ICD Codes: R53.1 - Weakness SNOMED: 02305304 (2) Drug abuse ICD Codes: F19.10 - Other psychoactive substance abuse, uncomplicated SNOMED: 35284627 (3) ANTONIO (acute kidney injury) ICD Codes: N17.9 - Acute kidney failure, unspecified SNOMED: 14618955, 5387889 (4) Rhabdomyolysis ICD Codes: M62.82 - Rhabdomyolysis SNOMED: 923174449 Status: stable, progressing Assessment/Plan: pt diet detox ivf cbc bmp am dc plan Subjective Constitutional: Reports: weakness Allergies: Coded Allergies: NO KNOWN ALLERGIES (Verified Allergy, Unknown, 07/04/19) All Systems: reviewed and negative except above Subjective sleepy calm Objective Last 24 Hour Vital Signs Date Time Temp Pulse Resp B/P (MAP) Pulse Ox O2 Delivery O2 Flow Rate FiO2 03/20/20 12:00 97.7 70 18 125/73 (90) 100 03/20/20 09:00 Room Air 03/20/20 08:00 97.3 74 20 128/74 (92) 98 03/20/20 04:00 97.5 97 20 131/96 (108) 95 03/20/20 00:00 97.5 73 20 123/77 (92) 98 03/19/20 21:00 Room Air 03/19/20 20:00 97.3 85 19 114/76 (89) 99 03/19/20 16:02 98.4 70 18 116/67 (83) 99 Intake and Output 03/19/20 03/20/20 19:00 07:00 Intake Total 1650 ml 915 ml Balance 1650 ml 915 ml Intake Oral 600 ml 240 ml IV Total 1050 ml 675 ml # Voids 2 1 # Bowel Movements 1 Laboratory Tests 03/20/20 04:40: White Blood Count 4.2L, Red Blood Count 4.57L, Hemoglobin 14.6, Hematocrit 42.4 , Mean Corpuscular Volume 93, Mean Corpuscular Hemoglobin 31.9H, Mean Corpuscular Hemoglobin Concent 34.3, Red Cell Distribution Width 10.8L, Platelet Count 158, Mean Platelet Volume 8.0, Neutrophils (%) (Auto) 46.2, Lymphocytes (%) (Auto) 38.9, Monocytes (%) (Auto) 10.1H, Eosinophils (%) (Auto) 3.9H, Basophils (%) (Auto) 0.9, Sodium Level 138, Potassium Level 4.0, Chloride Level 104, Carbon Dioxide Level 26, Anion Gap 8, Blood Urea Nitrogen 22H, Creatinine 1.3, Estimat Glomerular Filtration Rate > 60, Glucose Level 116H, Calcium Level 8.6 Height (Feet): 5 Height (Inches): 4.00 Weight (Pounds): 150 General Appearance: lethargic EENT: normal ENT inspection Neck: normal alignment Cardiovascular: normal peripheral pulses, normal rate, regular rhythm Respiratory/Chest: chest wall non-tender, lungs clear, normal breath sounds Abdomen: normal bowel sounds, non tender, soft Extremities: normal inspection Edema: no edema noted Arm (L), no edema noted Arm (R), no edema noted Leg (L), no edema noted Leg (R), no edema noted Pedal (L), no edema noted Pedal (R), no edema noted Generalized Neurologic: motor weakness Skin: normal pigmentation, warm/dry Andrea Luis DO Mar 20, 2020 13:33
--- NOTE | 2020-03-20 13:46 | Consultation ---
History of Present Illness General Date patient seen: Mar 20, 2020 Chief Complaint: Male Urogenital Problems Present Illness HPI 44 y/o M with hx of Hepatitis C, HIV- non compliant with meds, ETOH abuse, Meth abuse, homelessness presented to ED on 03/18 with Lightheadedness and recent admission for ANTONIO and rhabdomyolisis. Patient was admitted here from 03/15-03/16 after being brought by [employer] due to tachycardia and drug intoxication; at the time Cr was up to 4.1 and CK 1537, UDS + amphetamines. Patient left AMA. Cr now down to 1.9. Denied f/c, JORGE, vision changes, CP, SOB, n/v/d, dysuria. ID called for HIV management for and VRE positive Allergies: Coded Allergies: NO KNOWN ALLERGIES (Verified Allergy, Unknown, 07/04/19) Medication History Scheduled Abacavir/Dolutegravir/Lamivudi (Triumeq 600-50-300 mg Tablet), 1 EACH PO DAILY, (Reported) Discontinued Medications Hydrocodone Bit/Acetaminophen 5-325* ([place] 5-325 Tablet*), 1 TAB ORAL Q6H PRN for FOR PAIN Discontinued Reason: Pt stopped taking med Ibuprofen* (Motrin*), 600 MG ORAL Q6H PRN for For Pain Discontinued Reason: Pt stopped taking med Unable to Obtain Medications (Unable To Obtain Meds), (Reported) Discontinued Reason: Pt stopped taking med Patient History Healthcare decision maker Resuscitation status Advanced Directive on File No Patient History Narrative Pmhx: as above Shx: No smoking. Positive alcohol. Positive meth use. Homelessness Fhx: non contributory Review of Systems All Other Systems: negative except mentioned in HPI Physical Exam Physical Exam Narrative GENERAL: Calm in bed, oriented x2, in no acute distress. CARDIOVASCULAR: No murmur. LUNGS: Distant and clear. ABDOMEN: Bowel sounds positive. Soft, nontender, nondistended. EXTREMITIES: No cyanosis or edema. NEUROLOGIC: The patient moves all extremities, slightly weak. Last 24 Hour Vital Signs Date Time Temp Pulse Resp B/P (MAP) Pulse Ox O2 Delivery O2 Flow Rate FiO2 03/20/20 12:00 97.7 70 18 125/73 (90) 100 03/20/20 09:00 Room Air 03/20/20 08:00 97.3 74 20 128/74 (92) 98 03/20/20 04:00 97.5 97 20 131/96 (108) 95 03/20/20 00:00 97.5 73 20 123/77 (92) 98 03/19/20 21:00 Room Air 03/19/20 20:00 97.3 85 19 114/76 (89) 99 03/19/20 16:02 98.4 70 18 116/67 (83) 99 Intake and Output 03/19/20 03/20/20 19:00 07:00 Intake Total 1650 ml 915 ml Balance 1650 ml 915 ml Intake Oral 600 ml 240 ml IV Total 1050 ml 675 ml # Voids 2 1 # Bowel Movements 1 Laboratory Tests Test 03/20/20 04:40 White Blood Count 4.2 K/UL (4.8-10.8) L Red Blood Count 4.57 M/UL (4.70-6.10) L Hemoglobin 14.6 G/DL (14.2-18.0) Hematocrit 42.4 % (42.0-52.0) Mean Corpuscular Volume 93 FL (80-99) Mean Corpuscular Hemoglobin 31.9 PG (27.0-31.0) H Mean Corpuscular Hemoglobin Concent 34.3 G/DL (32.0-36.0) Red Cell Distribution Width 10.8 % (11.6-14.8) L Platelet Count 158 K/UL (150-450) Mean Platelet Volume 8.0 FL (6.5-10.1) Neutrophils (%) (Auto) 46.2 % (45.0-75.0) Lymphocytes (%) (Auto) 38.9 % (20.0-45.0) Monocytes (%) (Auto) 10.1 % (1.0-10.0) H Eosinophils (%) (Auto) 3.9 % (0.0-3.0) H Basophils (%) (Auto) 0.9 % (0.0-2.0) Sodium Level 138 MMOL/L (136-145) Potassium Level 4.0 MMOL/L (3.5-5.1) Chloride Level 104 MMOL/L (98-107) Carbon Dioxide Level 26 MMOL/L (21-32) Anion Gap 8 mmol/L (5-15) Blood Urea Nitrogen 22 mg/dL (7-18) H Creatinine 1.3 MG/DL (0.55-1.30) Estimat Glomerular Filtration Rate > 60 mL/min (>60) Glucose Level 116 MG/DL (74-106) H Calcium Level 8.6 MG/DL (8.5-10.1) Height (Feet): 5 Height (Inches): 4.00 Weight (Pounds): 150 Medications Current Medications Medications (Trade) Dose Ordered Sig/Jo Ann Route PRN Reason Start Time Stop Time Status Last Admin Dose Admin Dextrose/Sodium Chloride 1,000 ml @ 75 mls/hr [id number] IV 03/19/20 10:22 04/18/20 10:21 03/20/20 03:56 Docusate Sodium (Colace) 100 mg THREE TIMES A DAY ORAL 03/18/20 13:00 04/17/20 12:59 03/20/20 12:47 Heparin Sodium (Porcine) (Heparin 5000 units/ml) 5,000 units EVERY 12 HOURS SUBQ 03/18/20 09:00 05/02/20 08:59 03/20/20 09:12 Hydralazine HCl (Apresoline) 25 mg Q4H PRN ORAL Blood pressure over 160 systol 03/18/20 09:28 06/16/20 09:27 Pantoprazole (Protonix) 40 mg EVERY 12 HOURS ORAL 03/18/20 21:00 04/17/20 20:59 03/20/20 09:13 Assessment/Plan Assessment/Plan: Abx: None Assessment: Afebrile Mild leukopenia ANTONIO, improving Rhabdomyolisis; improving Elevated AST; improving UDS +amphetamines Lightheadedness 03/15 CT head wo: No acute intracranial process. MRI is more sensitive if warranted. Hepatitis C HIV -dx on 2008; has been on Triumeq since then- reports he is compliant and his VL is undetectable. [facility]. ETOH abuse Meth abuse homelessness MRSA colonized VRE colonized Plan: -Continue to monitor off abx -f/u cx -resume Triumeq (Rx made to be faxed over to [facility] as not available at inpatient [facility] pharmacy) -Monitor CBC/CMP, temperatures -HIV ag/ab, VL and genotype -RPR, GC/CL, hep panel -work up of lightheadedness per primary team Thank you for this consultation. Will continue to follow along with you. Discussed with PELON. Mignon Vasquez M.D. Mar 20, 2020 13:46
--- NOTE | 2020-03-20 15:55 | Nephrology Progress Note ---
Assessment/Plan Problem List: (1) ANTONIO (acute kidney injury) Assessment: Resolved (2) Rhabdomyolysis Assessment: Improving (3) Substance abuse Assessment ANTONIO, patient admitted 2 days ago with creatinine of 4 but signed AMA. Presents with serum creatinine of 1.9 Rhabdomyolysis HIV positive Hepatitis C per history Substance abuse Plan March 20: IV fluid discontinued. Patient takes p.o. well. Renal parameters stable. Patient ready to discharge waiting for placement. Hydrate: P.o. and IV Monitor renal parameters and CPK: Improving Mag supplement Per orders Subjective ROS Limited/Unobtainable: No Constitutional: Reports: malaise Objective Objective Last 24 Hour Vital Signs Date Time Temp Pulse Resp B/P (MAP) Pulse Ox O2 Delivery O2 Flow Rate FiO2 03/20/20 12:00 97.7 70 18 125/73 (90) 100 03/20/20 09:00 Room Air 03/20/20 08:00 97.3 74 20 128/74 (92) 98 03/20/20 04:00 97.5 97 20 131/96 (108) 95 03/20/20 00:00 97.5 73 20 123/77 (92) 98 03/19/20 21:00 Room Air 03/19/20 20:00 97.3 85 19 114/76 (89) 99 03/19/20 16:02 98.4 70 18 116/67 (83) 99 Intake and Output 03/19/20 03/20/20 19:00 07:00 Intake Total 1650 ml 915 ml Balance 1650 ml 915 ml Intake Oral 600 ml 240 ml IV Total 1050 ml 675 ml # Voids 2 1 # Bowel Movements 1 Current Medications Medications (Trade) Dose Ordered Sig/Jo Ann Route PRN Reason Start Time Stop Time Status Last Admin Dose Admin Dextrose/Sodium Chloride 1,000 ml @ 75 mls/hr [id number] IV 03/19/20 10:22 04/18/20 10:21 03/20/20 13:36 Docusate Sodium (Colace) 100 mg THREE TIMES A DAY ORAL 03/18/20 13:00 04/17/20 12:59 03/20/20 12:47 Heparin Sodium (Porcine) (Heparin 5000 units/ml) 5,000 units EVERY 12 HOURS SUBQ 03/18/20 09:00 05/02/20 08:59 03/20/20 09:12 Hydralazine HCl (Apresoline) 25 mg Q4H PRN ORAL Blood pressure over 160 systol 03/18/20 09:28 06/16/20 09:27 Pantoprazole (Protonix) 40 mg EVERY 12 HOURS ORAL 03/18/20 21:00 04/17/20 20:59 03/20/20 09:13 Laboratory Tests 03/20/20 04:40: White Blood Count 4.2L, Red Blood Count 4.57L, Hemoglobin 14.6, Hematocrit 42.4 , Mean Corpuscular Volume 93, Mean Corpuscular Hemoglobin 31.9H, Mean Corpuscular Hemoglobin Concent 34.3, Red Cell Distribution Width 10.8L, Platelet Count 158, Mean Platelet Volume 8.0, Neutrophils (%) (Auto) 46.2, Lymphocytes (%) (Auto) 38.9, Monocytes (%) (Auto) 10.1H, Eosinophils (%) (Auto) 3.9H, Basophils (%) (Auto) 0.9, Sodium Level 138, Potassium Level 4.0, Chloride Level 104, Carbon Dioxide Level 26, Anion Gap 8, Blood Urea Nitrogen 22H, Creatinine 1.3, Estimat Glomerular Filtration Rate > 60, Glucose Level 116H, Calcium Level 8.6 Height (Feet): 5 Height (Inches): 4.00 Weight (Pounds): 150 General Appearance: no apparent distress Cardiovascular: normal rate Respiratory/Chest: lungs clear Abdomen: soft Roberto Stewart MD Mar 20, 2020 15:55
[2020-03-20 16:00] VITALS: BP 115/70
[2020-03-20 20:00] VITALS: BP 112/68
[2020-03-21] VITALS: BP 121/74
[2020-03-21 04:00] VITALS: BP 116/75
[2020-03-21 08:00] VITALS: BP 104/64
--- NOTE | 2020-03-21 08:53 | General Progress Note ---
Assessment/Plan Problem List: (1) Weak ICD Codes: R53.1 - Weakness SNOMED: 16159566 (2) Drug abuse ICD Codes: F19.10 - Other psychoactive substance abuse, uncomplicated SNOMED: 42763819 (3) ANTONIO (acute kidney injury) ICD Codes: N17.9 - Acute kidney failure, unspecified SNOMED: 30225278, 5591618 (4) Rhabdomyolysis ICD Codes: M62.82 - Rhabdomyolysis SNOMED: 377326062 Status: stable, progressing Assessment/Plan: pt diet detox ivf dc if clear Subjective Constitutional: Reports: weakness Allergies: Coded Allergies: NO KNOWN ALLERGIES (Verified Allergy, Unknown, 07/04/19) All Systems: reviewed and negative except above Subjective sleepy calm Objective Last 24 Hour Vital Signs Date Time Temp Pulse Resp B/P (MAP) Pulse Ox O2 Delivery O2 Flow Rate FiO2 03/21/20 04:00 97.0 66 20 116/75 (89) 98 03/21/20 00:00 97.9 81 20 121/74 (90) 96 03/20/20 21:00 Room Air 03/20/20 20:00 98.1 77 20 112/68 (83) 97 03/20/20 16:00 97.7 72 20 115/70 (85) 98 03/20/20 12:00 97.7 70 18 125/73 (90) 100 03/20/20 09:00 Room Air Intake and Output 03/20/20 03/21/20 19:00 07:00 Intake Total 500 ml Balance 500 ml Intake Oral 500 ml # Voids 3 Laboratory Tests 03/21/20 08:00: White Blood Count [Pending], Red Blood Count [Pending], Hemoglobin [Pending], Hematocrit [Pending], Mean Corpuscular Volume [Pending], Mean Corpuscular Hemoglobin [Pending], Mean Corpuscular Hemoglobin Concent [Pending], Red Cell Distribution Width [Pending], Platelet Count [Pending], Mean Platelet Volume [ Pending], Neutrophils (%) (Auto) [Pending], Lymphocytes (%) (Auto) [Pending], Monocytes (%) (Auto) [Pending], Eosinophils (%) (Auto) [Pending], Basophils (%) (Auto) [Pending], Sodium Level [Pending], Potassium Level [Pending], Chloride Level [Pending], Carbon Dioxide Level [Pending], Blood Urea Nitrogen [Pending], Creatinine [Pending], Estimat Glomerular Filtration Rate [Pending], Glucose Level [Pending], Calcium Level [Pending], Phosphorus Level [Pending], Magnesium Level [Pending], Total Bilirubin [Pending], Aspartate Amino Transf (AST/SGOT) [ Pending], Alanine Aminotransferase (ALT/SGPT) [Pending], Alkaline Phosphatase [ Pending], Total Creatine Kinase [Pending], Total Protein [Pending], Albumin [ Pending], Globulin [Pending], Rapid Plasma Reagin [Pending], HIV-1 RNA, Quantitative copies/mL [Pending], HIV-1 RNA (PCR) log10 Value [Pending], HIV-1 RNA Ultraquantitative (PCR) [Pending], HIV Genotype [Pending], HIV (1&2) Antibody Rapid [Pending] Height (Feet): 5 Height (Inches): 4.00 Weight (Pounds): 141 General Appearance: lethargic EENT: normal ENT inspection Neck: normal alignment Cardiovascular: normal peripheral pulses, normal rate, regular rhythm Respiratory/Chest: chest wall non-tender, lungs clear, normal breath sounds Abdomen: normal bowel sounds, non tender, soft Extremities: normal inspection Edema: no edema noted Arm (L), no edema noted Arm (R), no edema noted Leg (L), no edema noted Leg (R), no edema noted Pedal (L), no edema noted Pedal (R), no edema noted Generalized Neurologic: motor weakness Skin: normal pigmentation, warm/dry Andrea Luis DO Mar 21, 2020 08:53
[2020-03-21 08:59] LABS: EOSINOPHILS % (AUTO) 4.1 % (0.0-3.0); HEMATOCRIT 44.4 % (42.0-52.0); HEMOGLOBIN 15.1 G/DL (14.2-18.0); LYMPHOCYTES % (AUTO) 36.2 % (20.0-45.0); MEAN CORPUSCULAR VOLUME 93 FL (80-99); MONOCYTES % (AUTO) 11.3 % (1.0-10.0); NEUTROPHILS % (AUTO) 47.5 % (45.0-75.0); PLATELET COUNT 178 K/UL (150-450); RED BLOOD COUNT 4.79 M/UL (4.70-6.10); WHITE BLOOD COUNT 3.8 K/UL (4.8-10.8)
[2020-03-21] MEDS ORDERED: TRIUMEQ ORAL SCH (09:00)
[2020-03-21 09:04] LABS: ALANINE AMINOTRANSFERASE 50 U/L (12-78); ALBUMIN 3.4 G/DL (3.4-5.0); ALBUMIN/GLOBULIN RATIO 0.8 (1.0-2.7); ALKALINE PHOSPHATASE 126 U/L (46-116); ANION GAP 7 mmol/L (5-15); ASPARTATE AMINO TRANSFERASE 41 U/L (15-37); BILIRUBIN,TOTAL 0.3 MG/DL (0.2-1.0); BLOOD UREA NITROGEN 25 mg/dL (7-18); CALCIUM 9.1 MG/DL (8.5-10.1); CARBON DIOXIDE 31 MMOL/L (21-32); CHLORIDE 105 MMOL/L (98-107); CREATININE 1.5 MG/DL (0.55-1.30); POTASSIUM 4.2 MMOL/L (3.5-5.1); SODIUM 143 MMOL/L (136-145)
[2020-03-21 09:05] LABS: CREATINE KINASE 91 U/L (26-308)
[2020-03-21] MEDS: Heparin 5000 units/ml inj SUBQ SCH (09:15)
[2020-03-21] MEDS: Docusate 100mg cap ORAL SCH (09:15)
--- NOTE | 2020-03-21 10:13 | Nephrology Progress Note ---
Assessment/Plan Problem List: (1) ANTONIO (acute kidney injury) Assessment: Resolved (2) Rhabdomyolysis Assessment: Improving (3) Substance abuse (4) HIV disease Assessment ANTONIO, patient admitted 2 days ago with creatinine of 4 but signed AMA. Presents with serum creatinine of 1.9 Rhabdomyolysis HIV positive Hepatitis C per history Substance abuse Plan March 21: Ambulating. Magnesium sulfate oral ordered. Continue to watch serum creatinine. Positive HIV March 20: IV fluid discontinued. Patient takes p.o. well. Renal parameters stable. Patient ready to discharge waiting for placement. Hydrate: P.o. and IV Monitor renal parameters and CPK: Improving Mag supplement Per orders Subjective ROS Limited/Unobtainable: No Objective Objective Last 24 Hour Vital Signs Date Time Temp Pulse Resp B/P (MAP) Pulse Ox O2 Delivery O2 Flow Rate FiO2 03/21/20 09:00 Room Air 03/21/20 08:00 97.2 72 20 104/64 (77) 97 03/21/20 04:00 97.0 66 20 116/75 (89) 98 03/21/20 00:00 97.9 81 20 121/74 (90) 96 03/20/20 21:00 Room Air 03/20/20 20:00 98.1 77 20 112/68 (83) 97 03/20/20 16:00 97.7 72 20 115/70 (85) 98 03/20/20 12:00 97.7 70 18 125/73 (90) 100 Intake and Output 03/20/20 03/21/20 19:00 07:00 Intake Total 500 ml Balance 500 ml Intake Oral 500 ml # Voids 3 Laboratory Tests 03/21/20 00:00: HIV-1 Antibody [Pending], HIV-2 Antibody [Pending] 03/21/20 08:00: White Blood Count 3.8L, Red Blood Count 4.79, Hemoglobin 15.1, Hematocrit 44.4, Mean Corpuscular Volume 93, Mean Corpuscular Hemoglobin 31.5H, Mean Corpuscular Hemoglobin Concent 34.0, Red Cell Distribution Width 11.0L, Platelet Count 178, Mean Platelet Volume 7.3, Neutrophils (%) (Auto) 47.5, Lymphocytes (%) (Auto) 36.2, Monocytes (%) (Auto) 11.3H, Eosinophils (%) (Auto) 4.1H, Basophils (%) ( Auto) 1.0, Sodium Level 143, Potassium Level 4.2, Chloride Level 105, Carbon Dioxide Level 31, Anion Gap 7, Blood Urea Nitrogen 25H, Creatinine 1.5H, Estimat Glomerular Filtration Rate 51.3, Glucose Level 82, Calcium Level 9.1, Phosphorus Level 3.0, Magnesium Level 1.7L, Total Bilirubin 0.3, Aspartate Amino Transf (AST/SGOT) 41H, Alanine Aminotransferase (ALT/SGPT) 50, Alkaline Phosphatase 126H, Total Creatine Kinase 91, Total Protein 7.9, Albumin 3.4, Globulin 4.5, Albumin/Globulin Ratio 0.8L, Rapid Plasma Reagin [Pending], HIV-1 RNA, Quantitative copies/mL [Pending], HIV-1 RNA (PCR) log10 Value [Pending], HIV-1 RNA Ultraquantitative (PCR) [Pending], HIV Genotype [Pending], HIV (1&2) Antibody Rapid Preliminary positiveH Height (Feet): 5 Height (Inches): 4.00 Weight (Pounds): 141 General Appearance: no apparent distress Objective No change Roberto Stewart MD Mar 21, 2020 10:13
[2020-03-21 12:00] VITALS: BP 114/68
--- NOTE | 2020-03-21 12:32 | Infectious Diseases Prog Note ---
Assessment/Plan Assessment: COVID19 neg x1 (rapid COVID PCR neg) Afebrile Mild leukopenia ANTONIO, overall improved Rhabdomyolysis; SP Elevated AST; improving UDS +amphetamines Lightheadedness 03/15 CT head wo: No acute intracranial process. MRI is more sensitive if warranted. Hepatitis C HIV -dx on 2008; has been on Triumeq since then- reports he is compliant and his VL is undetectable. Follows at the [facility] center. ETOH abuse Meth abuse homelessness MRSA colonized VRE colonized Plan: -Continue to monitor off abx -f/u cx -Cont Triumeq --will need to hold if GFR <50 -Monitor CBC/CMP, temperatures -f/u HIV VL and genotype, RPR, GC/CL, hep panel -work up of lightheadedness per primary team Thank you for this consultation. Will continue to follow along with you. Discussed with RN. Subjective Allergies: Coded Allergies: NO KNOWN ALLERGIES (Verified Allergy, Unknown, 07/04/19) Objective Last 24 Hour Vital Signs Date Time Temp Pulse Resp B/P (MAP) Pulse Ox O2 Delivery O2 Flow Rate FiO2 03/21/20 09:00 Room Air 03/21/20 08:00 97.2 72 20 104/64 (77) 97 03/21/20 04:00 97.0 66 20 116/75 (89) 98 03/21/20 00:00 97.9 81 20 121/74 (90) 96 03/20/20 21:00 Room Air 03/20/20 20:00 98.1 77 20 112/68 (83) 97 03/20/20 16:00 97.7 72 20 115/70 (85) 98 Height (Feet): 5 Height (Inches): 4.00 Weight (Pounds): 141 GENERAL: Calm in bed, oriented x2, in no acute distress. CARDIOVASCULAR: No murmur. LUNGS: Distant and clear. ABDOMEN: Bowel sounds positive. Soft, nontender, nondistended. EXTREMITIES: No cyanosis or edema. NEUROLOGIC: The patient moves all extremities, slightly weak. Microbiology Date/Time Source Procedure Growth Status 03/20/20 16:50 Nasopharynx SARS-CoV-2 RdRp Gene Assay - Final Complete Laboratory Tests Test 03/21/20 00:00 03/21/20 08:00 HIV-1 Antibody Pending HIV-2 Antibody Pending White Blood Count 3.8 K/UL (4.8-10.8) L Red Blood Count 4.79 M/UL (4.70-6.10) Hemoglobin 15.1 G/DL (14.2-18.0) Hematocrit 44.4 % (42.0-52.0) Mean Corpuscular Volume 93 FL (80-99) Mean Corpuscular Hemoglobin 31.5 PG (27.0-31.0) H Mean Corpuscular Hemoglobin Concent 34.0 G/DL (32.0-36.0) Red Cell Distribution Width 11.0 % (11.6-14.8) L Platelet Count 178 K/UL (150-450) Mean Platelet Volume 7.3 FL (6.5-10.1) Neutrophils (%) (Auto) 47.5 % (45.0-75.0) Lymphocytes (%) (Auto) 36.2 % (20.0-45.0) Monocytes (%) (Auto) 11.3 % (1.0-10.0) H Eosinophils (%) (Auto) 4.1 % (0.0-3.0) H Basophils (%) (Auto) 1.0 % (0.0-2.0) Sodium Level 143 MMOL/L (136-145) Potassium Level 4.2 MMOL/L (3.5-5.1) Chloride Level 105 MMOL/L (98-107) Carbon Dioxide Level 31 MMOL/L (21-32) Anion Gap 7 mmol/L (5-15) Blood Urea Nitrogen 25 mg/dL (7-18) H Creatinine 1.5 MG/DL (0.55-1.30) H Estimat Glomerular Filtration Rate 51.3 mL/min (>60) Glucose Level 82 MG/DL (74-106) Calcium Level 9.1 MG/DL (8.5-10.1) Phosphorus Level 3.0 MG/DL (2.5-4.9) Magnesium Level 1.7 MG/DL (1.8-2.4) L Total Bilirubin 0.3 MG/DL (0.2-1.0) Aspartate Amino Transf (AST/SGOT) 41 U/L (15-37) H Alanine Aminotransferase (ALT/SGPT) 50 U/L (12-78) Alkaline Phosphatase 126 U/L (46-116) H Total Creatine Kinase 91 U/L (26-308) Total Protein 7.9 G/DL (6.4-8.2) Albumin 3.4 G/DL (3.4-5.0) Globulin 4.5 g/dL Albumin/Globulin Ratio 0.8 (1.0-2.7) L Rapid Plasma Reagin Pending HIV-1 RNA, Quantitative copies/mL Pending HIV-1 RNA (PCR) log10 Value Pending HIV-1 RNA Ultraquantitative (PCR) Pending HIV Genotype Pending HIV (1&2) Antibody Rapid Preliminary positive Current Medications Medications (Trade) Dose Ordered Sig/Jo Ann Route PRN Reason Start Time Stop Time Status Last Admin Dose Admin Docusate Sodium (Colace) 100 mg THREE TIMES A DAY ORAL 03/18/20 13:00 04/17/20 12:59 03/21/20 09:15 Heparin Sodium (Porcine) (Heparin 5000 units/ml) 5,000 units EVERY 12 HOURS SUBQ 03/18/20 09:00 05/02/20 08:59 03/21/20 09:15 Hydralazine HCl (Apresoline) 25 mg Q4H PRN ORAL Blood pressure over 160 systol 03/18/20 09:28 06/16/20 09:27 Magnesium Oxide (Mag-Ox 400mg) 400 mg THREE TIMES A DAY ORAL 03/21/20 13:00 04/20/20 12:59 Pantoprazole (Protonix) 40 mg EVERY 12 HOURS ORAL 03/18/20 21:00 04/17/20 20:59 03/21/20 09:15 Patient Own Medication (Patient's Own Med) 1 ea DAILY ORAL 03/21/20 09:00 04/20/20 08:59 03/21/20 09:15 Mignon Vasquez M.D. Mar 21, 2020 12:32
[2020-03-21] MEDS ORDERED: Magnesium Oxide 400mg tab ORAL SCH (13:00)
--- NOTE | 2020-03-23 14:17 | Discharge Summary ---
Discharge Summary Discharge Summary _ DATE OF ADMISSION: 03/18/2020 DATE OF DISCHARGE: 03/21/2020 DISCHARGED BY: Dr. Luis REASON FOR ADMISSION: 44 years old male with past medical history of HIV, noncompliant with medication , recently diagnosed with acute kidney injury and rhabdomyolysis , presented with lightheadedness. Patient admitted 24 hours ago to the hospital for acute kidney injury in setting of rhabdomyolysis, however patient left AGAINST MEDICAL ADVICE. Patient reported that he slept on the street for the past 24 hours. He stated that he felt lightheaded. He subsequently came back for evaluation . He reported that his urine was dark . He denied fever and chills. He denied headache, vision changes, focal numbness or weakness. No chest pain , palpitations or shortness of breath. No abdominal pain, nausea ,vomiting ,diarrhea ,dysuria or back pain. Upon evaluation vital signs were stable. Laboratory work-up revealed no leukocytosis ,stable hemoglobin ,hematocrit and platelet count. Urinalysis revealed +1 protein, +1 glucose ,+2 blood ,microscopic hematuria ,no evidence of UTI. Stable electrolytes. BUN 37, creatinine 1.9. Glucose 77. AST 102 , ALT 70. CK 1592. Rapid COVID-19 was negative. Urine toxicology screen was positive for amphetamine. In emergency department patient received 4 L of fluid and admitted for further management. CONSULTANTS: ID specialist Dr. Vasquez loan review analyst Dr. Stewart HOSPITAL COURSE: Patient admitted to medical surgical floor. Patient was continued on aggressive IV hydration. Renal parameters and electrolytes were closely monitored , nephrotoxin were avoided. CK and LFT were trending. Prior to discharge CK down to 91. AST down to 41 , ALT down to 50. Creatinine from 1.9 down to 1.5. Patient was counseled on abstinence from illicit street drugs. Electrolytes corrected as needed. IV fluids discontinued prior to discharge. Patient remained afebrile with mild leukopenia. Patient has a history of hepatitis C. HIV was diagnosed in 2008. Patient had been on Triumeq since that time and reported compliance with his medication. His viral load undetectable. Patient [facility] with [facility] as [facility]. ID specialist recommended to monitor patient off antibiotic. Patient clinically stabilized and was ready for discharge . The treating physician and consultants had assessed and agreed that patient was medically stable for discharge to an outpatient disposition. FINAL DIAGNOSES: Acute kidney injury -improved Rhabdomyolysis -resolved HIV disease Substance abuse/amphetamine Homelessness Hepatitis C DISCHARGE MEDICATIONS: See Medication Reconciliation list. DISCHARGE INSTRUCTIONS: Patient was discharged outpatient disposition. [facility] with [facility] for further management. I have been assigned to dictate discharge summary for this account. I was not involved in the patient's management. Syl Lan NP Mar 23, 2020 14:17
== END 2020-03-21 13:50 | disposition home or self-care (01) | DRG 469 ==
LOC: EMR 00:41 → 3E 01:32 → EDBEDREQ 02:45 → 4E 03-20 21:45
DX: N17.9 Acute kidney failure, unspecified (principal); M62.82 Rhabdomyolysis; F15.10 Other stimulant abuse, uncomplicated; Z86.19 Personal history of other infectious and parasitic diseases; Z59.0 Homelessness; F10.10 Alcohol abuse, uncomplicated
CPT/HCPCS: 36415; 80048; 80053; 80061; 80307; 81003; 82550; 82977; 83735; 84100; 84550; 85025; 86140; 86592; 86689; 86703; 87081; 87535; 87536; 96360; 96361; 99291; G0480; J7030; U0002

== ENCOUNTER 2020-04-25 21:16 | Emergency (ER) | payer MEDICAID ==
[~2020-04-25] VITALS: Ht 167.6 cm; Wt 70.3 kg
[~2020-04-25 21:16] MED LIST changes: +TRIUMEQ 600-501 EACH PO
[2020-04-25 21:30] VITALS: BP 123/81
[2020-04-25 21:40] VITALS: BP 123/81
--- NOTE | 2020-04-25 21:40 | NUR ---
ER DISCHARGE NOTE: Patient is cleared to be discharged per ERMD, pt is aox4, on room air, with stable vital signs. pt was given dc and prescription instructions, pt was able to verbalize understanding, pt id band removed without complications. pt is able to ambulate with steady gait. pt took all belongings.
--- NOTE | 2020-04-25 21:43 | Emergency Room Report ---
History of Present Illness General Chief Complaint: Head Injury Source: Patient Present Illness HPI Disclaimer: Please note that this report is being documented using [employer] technology. This can lead to erroneous entry secondary to incorrect interpretation by the dictating instrument. HPI: 45-year-old male history of HIV presents for evaluation of scalp injury. The patient was weight training with kettle bells which he was throwing over his head. He accidentally hit himself on the side of the left sabianism with 1 of the kettle bells but is not a direct blow. There is no loss of consciousness, no seizure-like activity. He does not take anticoagulants. He denies headache, dizziness, visual changes, neck or back pain, nausea, vomiting or other symptoms at this time. He received a very small and superficial laceration of the left sabianism which he states is just persistently oozing and wanted to have it checked out. No other injuries reported. No other complaints from patient at this time. 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 There is a less than 0.5 cm laceration over the left sabianism which is slightly oozing but no brisk bleeding. No surrounding edema, erythema. No palpable fracture. EOMI. PERRLA. No hemotympanum. Resp: Normal work of breathing Skin: Intact. No abrasions, laceration or rash over the exposed skin MSK: Normal tone and bulk. Moving all extremities. No obvious deformity. Neuro: Awake and alert. Mentating appropriately Medical Decision Making Diagnostic Impression: Primary Impression: Scalp laceration ER Course Is a 45-year-old male presenting for evaluation of scalp laceration. Patient had a minor head injury but according to [place] head CT rules is low risk for significant intracranial bleed. He is well-appearing with no complaints at this time aside from persistent oozing from the wound. Wound was cleaned by me and irrigated. He states his tetanus is up-to-date. Offered the patient to place one staple or suture however he declined. I applied a pressure dressing. The wound is well approximated and should heal well on its own. Discussed strict return precautions regarding head injury. Patient stable for outpatient follow- up at this time. Last Vital Signs Date Time Temp Pulse Resp B/P (MAP) Pulse Ox O2 Delivery O2 Flow Rate FiO2 04/25/20 21:20 97.3 77 18 123/81 (95) 99 Room Air Disposition: HOME, SELF-CARE Condition: Stable Patient Instructions: Head Injury, Adult, Nonsutured Laceration Care Additional Instructions: Please follow-up with your primary care doctor in the next 1 to 3 days to discuss this emergency department visit and for reevaluation. If you have any new or worsening symptoms please return to the emergency department for reevaluation. Please note that this report is being documented using [employer] technology. This can lead to erroneous entry secondary to incorrect interpretation by the dictating instrument. Jet Diaz MD Apr 25, 2020 21:43
== END 2020-04-25 21:45 | disposition home or self-care (01) ==
LOC: EMR 21:42
DX: S01.01XA Laceration without foreign body of scalp, initial encounter (principal); W22.8XXA Striking against or struck by other objects, initial encounter; Y93.89 Activity, other specified; Y92.9 Unspecified place or not applicable; Z21 Asymptomatic human immunodeficiency virus [HIV] infection status
CPT/HCPCS: 99282

== ENCOUNTER 2020-04-30 05:06 | Emergency (ER) | payer MEDICAID ==
[~2020-04-30] VITALS: Ht 167.6 cm; Wt 72.6 kg
--- NOTE | 2020-04-30 05:13 | NUR ---
ED Nurse Note: PT walked in c/o abd pain, n/d since AM. Pt stated he is taking keflex for an infection. Pt stated "i got a sandwich at the food bank and i dont know if i am having a reaction to the food or antibiotic". changed into gown; attached to monitor. patient ao4. presents with facial grimacing from pain 10/10. all safety measures met
--- NOTE | 2020-04-30 05:15 | NUR ---
ED Nurse Note: iv access established. blood and urine collected; sent down to lab.
--- NOTE | 2020-04-30 05:25 | Emergency Room Report ---
History of Present Illness General Chief Complaint: Abdominal Pain Source: Patient, Medical Record Present Illness HPI This is a 45-year-old male with a history of HIV. Unknown CD4 count or viral load. Also history of methamphetamine abuse. Patient presents with abdominal pain. Onset 2 hours ago. He said he ate some food from the food pantry and afterward he had severe abdominal cramps and pain. He also has 3 episode of diarrhea. Nausea but no vomiting. No fever chills. Pain is 8 out of 10. Worse with movement. Better with rest. Denies any trauma. Denies any urine complaint. Allergies: Coded Allergies: NO KNOWN ALLERGIES (Verified Allergy, Unknown, 07/04/19) COVID-19 Screening Contact w/high risk pt: No Recent Travel to affected area: No Experienced COVID-19 symptoms?: No COVID-19 Testing performed SONAR TECHNICIAN: No Patient History Past Medical History: see triage record, old chart reviewed, HIV Past Surgical History: none Pertinent Family History: none Social History: Reports: drug use; Denies: smoking Immunizations: other Reviewed Nursing Documentation: PMH: Agreed; PSxH: Agreed Nursing Documentation-PMH Hx Cancer: No Hx Gastrointestinal Problems: Yes Hx Neurological Problems: No Hx Concentration Difficulty: Yes Review of Systems Eye: Denies: eye pain, blurred vision ENT: Denies: ear pain, nose congestion, throat swelling Respiratory: Denies: cough, shortness of breath Cardiovascular: Denies: chest pain, palpitations Gastrointestinal: Reports: abdominal pain, diarrhea, nausea; Denies: vomiting Musculoskeletal: Denies: back pain, joint pain Skin: Denies: rash Neurological: Denies: headache, numbness Endocrine: Denies: increased thirst, increased urine Hematologic/Lymphatic: Denies: easy bruising All Other Systems: negative except mentioned in HPI Physical Exam Vital Signs Date Time Temp Pulse Resp B/P (MAP) Pulse Ox O2 Delivery O2 Flow Rate FiO2 04/30/20 05:10 97.5 56 16 164/98 (120) 98 Room Air Vitals with hypertension Sp02 EP Interpretation: reviewed, normal General Appearance: well appearing, no apparent distress, alert Head: normocephalic, atraumatic Eyes: bilateral eye PERRL, bilateral eye EOMI ENT: hearing grossly normal, normal pharynx Neck: full range of motion, supple, no meningismus Respiratory: chest non-tender, lungs clear, normal breath sounds Cardiovascular #1: regular rate, rhythm, no murmur Gastrointestinal: no mass, no organomegaly, no bruit, non-distended, tenderness - Diffuse, decreased bowel sounds Musculoskeletal: back normal, normal range of motion, gait/station normal Psychiatric: mood/affect normal Medical Decision Making Diagnostic Impression: Primary Impression: Abdominal pain Qualified Codes: R10.84 - Generalized abdominal pain ER Course Patient presents with abdominal pain. Better after pain medication. No evidence of acute abdomen obstruction. If laboratory data is abnormal, may be discharged home. Last Vital Signs Date Time Temp Pulse Resp B/P (MAP) Pulse Ox O2 Delivery O2 Flow Rate FiO2 04/30/20 05:10 97.5 56 16 164/98 (120) 98 Room Air Status: improved Disposition: HOME, SELF-CARE Condition: Stable [facility]errals: [facility]ERR[facility] (PCP) Patient Instructions: Abdominal Pain, Adult Additional Instructions: Follow-up with your doctor in 2 to 3 days if not better. Return if symptoms worsen. Rex Barboza MD Apr 30, 2020 05:25
[2020-04-30] MEDS ORDERED: HYDROmorphone 1mg/ml Carpuject IVP ONE (05:30)
[2020-04-30] MEDS ORDERED: Pantoprazole Inj IV ONE (05:30)
[2020-04-30 05:34] LABS: BASOPHILS % (AUTO) 0.9 % (0.0-2.0); EOSINOPHILS % (AUTO) 3.6 % (0.0-3.0); HEMATOCRIT 41.3 % (42.0-52.0); HEMOGLOBIN 14.4 G/DL (14.2-18.0); LYMPHOCYTES % (AUTO) 38.6 % (20.0-45.0); MEAN CORPUSCULAR VOLUME 90 FL (80-99); MONOCYTES % (AUTO) 8.6 % (1.0-10.0); NEUTROPHILS % (AUTO) 48.3 % (45.0-75.0); PLATELET COUNT 198 K/UL (150-450); RED BLOOD COUNT 4.59 M/UL (4.70-6.10); RED CELL DISTRIBUTION WIDTH 11.8 % (11.6-14.8); WHITE BLOOD COUNT 5.1 K/UL (4.8-10.8)
[2020-04-30 05:36] LABS: APPEARANCE,URINE CLEAR; BILIRUBIN, URINE NEGATIVE (NEGATIVE); COLOR,URINE PALE YELLOW; GLUCOSE, URINE (UA) NEGATIVE (NEGATIVE); KETONES,URINE NEGATIVE (NEGATIVE); LEUKOCYTE ESTERASE ,URINE NEGATIVE (NEGATIVE); NITRITE,URINE NEGATIVE (NEGATIVE); PH,URINE 6 (4.5-8.0); PROTEIN,URINE NEGATIVE (NEGATIVE); UROBILINOGEN,URINE NORMAL MG/DL (0.0-1.0)
[2020-04-30 05:40] VITALS: BP 164/98
[2020-04-30 05:47] LABS: CALCIUM 8.6 MG/DL (8.5-10.1); CREATININE 1.5 MG/DL (0.55-1.30); POTASSIUM 3.9 MMOL/L (3.5-5.1)
[2020-04-30 05:51] LABS: ALBUMIN 3.5 G/DL (3.4-5.0); BILIRUBIN,TOTAL 0.2 MG/DL (0.2-1.0)
[2020-04-30 05:55] VITALS: BP 135/89
--- NOTE | 2020-04-30 05:55 | NUR ---
ER DISCHARGE NOTE: Patient is cleared to be discharged per ERMD, pt is aox4, on room air, with stable vital signs. pt was given dc instructions, pt was able to verbalize understanding, pt id band and iv site removed without complications. pt is able to ambulate with steady gait. pt took all belongings.
--- NOTE | 2020-04-30 05:55 | NUR ---
Note undone in EDM - 04/30/20 at 0600 by LCRISOSTOM ER DISCHARGE NOTE: Patient is cleared to be discharged per ERMD, pt is aox4, on room air, with stable vital signs. pt was given dc and prescription instructions, pt was able to verbalize understanding, pt id band and iv site removed without complications. pt is able to ambulate with steady gait. pt took all belongings.
== END 2020-04-30 05:55 | disposition home or self-care (01) ==
LOC: EMR 05:23
DX: R10.84 Generalized abdominal pain (principal); B20 Human immunodeficiency virus [HIV] disease; R19.7 Diarrhea, unspecified; R11.0 Nausea
CPT/HCPCS: 36415; 80053; 81003; 83690; 85025; 96374; 96375; J1170; J2405; J7030; S0164; Z7502; 99284

== ENCOUNTER 2020-08-08 23:59 | Emergency (ER) | payer MEDICAID ==
--- NOTE | 2020-08-09 00:12 | Emergency Room Report ---
History of Present Illness General Chief Complaint: To Be Triaged Present Illness HPI Apparently patient c/o headache. He decided not to be seen and left the ED prior to evaluation. Allergies: Coded Allergies: NO KNOWN ALLERGIES (Verified Allergy, Unknown, 07/04/19) COVID-19 Screening Contact w/high risk pt: No Recent Travel to affected area: No Experienced COVID-19 symptoms?: No Patient History Past Medical History: see triage record Social History: Reports: smoking, drug use Social History Narrative patient has address in system Reviewed Nursing Documentation: PMH: Agreed; PSxH: Agreed Nursing Documentation-PMH Hx Cancer: No Hx Gastrointestinal Problems: Yes Hx Neurological Problems: No Hx Concentration Difficulty: Yes Physical Exam Not examined by me Medical Decision Making Diagnostic Impression: Primary Impression: Patient left without being seen ER Course Patient left before triage. 015 Disposition: LEFT W/OUT BEING SEEN Condition: Unknown Rashaad Mohamud MD Aug 09, 2020 00:12
== END 2020-08-09 00:09 | disposition left against medical advice (07) ==
LOC: EMR 08-09 00:09
DX: R51.9 Headache, unspecified (principal); F17.200 Nicotine dependence, unspecified, uncomplicated; F19.11 Other psychoactive substance abuse, in remission; Z53.21 Procedure and treatment not carried out due to patient leaving prior to being seen by health care provider

== ENCOUNTER 2020-08-14 19:45 | Emergency (ER) | payer MEDICAID ==
[~2020-08-14] VITALS: Ht 165.1 cm; Wt 68.0 kg
--- NOTE | 2020-08-14 20:15 | NUR ---
not in waiting room
[2020-08-14 20:45] VITALS: BP 140/90
--- NOTE | 2020-08-14 20:45 | NUR ---
Nurse Note: Pt walked in c/o RT lower leg pain intermittent for 2 weeks but gotten worse since 1500. Pt stated he got a syphilis shot around 1500 and pain gettting worse. Pt noted red bumps noted RT leg.
[2020-08-14] MEDS ORDERED: HYDROcodone/Acetamin 5/325 tab ORAL ONE (21:00)
--- NOTE | 2020-08-14 21:03 | NUR ---
Nurse Note: x-ray taken
[2020-08-14] MEDS ORDERED: HYDROCODON-ACE1 EA15 ORAL (21:16)
[2020-08-14] MEDS ORDERED: CEPHALEXIN500 MG ORAL (21:16)
[2020-08-14 21:30] VITALS: BP 140/90
--- NOTE | 2020-08-14 21:30 | NUR ---
ED Nurse Note: Pt cleared by health care Provider for discharge. DC instructions/prescription was given and explained to pt and verbalized understanding of teachings. Instructed pt to follow up with PCP within 2-6 days. All medical deviecs such as ID band removed. Pt is AAO x4, ambulatory and left with all personal belongings.
--- NOTE | 2020-08-15 14:22 | Diagnostic Imaging Report ---
Indication: Right leg pain Technique: 2 views of the right tibia and fibula Comparison: none Findings: There is some lucency in the subcutaneous fat medially, and the subcutaneous fat appears thickened compared to laterally. Radiopaque foreign body. No fracture, dislocation, or evidence of bony disruption Impression: Questionable soft tissue gas medially, versus subcutaneous fat outlined by edema; if the former, the possibility of infection with gas-forming organism should be considered. Negative for radiopaque foreign body or bony trauma Findings discussed by phone with Dr. Mohamud in the emergency room at the time of interpretation
--- NOTE | 2020-08-15 14:23 | Emergency Room Report ---
Physical Exam Vital Signs Date Time Temp Pulse Resp B/P (MAP) Pulse Ox O2 Delivery O2 Flow Rate FiO2 08/14/20 20:40 98.4 100 22 140/90 (107) 98 Room Air Medical Decision Making Diagnostic Impression: Primary Impression: Leg pain ER Course Radiology called with question of possible gas versus fat stip. No note. Try to contact patient, not answer number. Letter sent. Last Vital Signs Date Time Temp Pulse Resp B/P (MAP) Pulse Ox O2 Delivery O2 Flow Rate FiO2 08/14/20 21:30 98.4 93 20 125/72 98 Room Air Disposition: HOME, SELF-CARE Condition: Stable Scripts Hydrocodone/Acetaminophen 5-325* (HYDROCODONE/ACETAMINOPHEN 5-325*) 1 Each Tablet 1 TAB ORAL Q6H PRN for For Pain, #12 TAB 0 Refills Prov: Parker Vo MD 08/14/20 Cephalexin* (KEFLEX*) 500 Mg Capsule 500 MG ORAL EVERY 6 HOURS, #28 CAP Prov: Parker Vo MD 08/14/20 Referrals: NON PHYSICIAN Patient Instructions: Cellulitis, [id number] Rashaad Mohamud MD Aug 15, 2020 14:23
== END 2020-08-14 21:30 | disposition home or self-care (01) ==
LOC: EMR 20:10
DX: M79.604 Pain in right leg (principal)
CPT/HCPCS: 73590; Z7502; 99283

== ENCOUNTER 2020-08-25 13:12 | Emergency (ER) | payer MEDICAID ==
[~2020-08-25] VITALS: Ht 167.6 cm; Wt 68.9 kg
[~2020-08-25 13:12] MED LIST changes: +CEPHALEXIN500 MG ORAL; +HYDROCODON-ACE1 EA15 ORAL
--- NOTE | 2020-08-25 13:55 | Emergency Room Report ---
History of Present Illness General Chief Complaint: Skin Rash/Abscess Source: Patient Present Illness HPI Patient is a 45-year-old male presented for follow-up on prior x-ray imaging. Patient had been contacted due to abnormality on previous x-ray. There is question of some soft tissue gas seen on previous tib-fib x-ray. Patient reports having some continued pain. Did not have any fever. Patient been able to ambulate without any difficulty. Allergies: Coded Allergies: NO KNOWN ALLERGIES (Verified Allergy, Unknown, 07/04/19) COVID-19 Screening Contact w/high risk pt: No Recent Travel to affected area: No Experienced COVID-19 symptoms?: No COVID-19 Testing performed WORKERS COMPENSATION LEGAL SECRETARY: No Patient History Reviewed Nursing Documentation: PMH: Agreed; PSxH: Agreed Nursing Documentation-PMH Past Medical History: No History, Except For Hx Cancer: No Hx Gastrointestinal Problems: Yes Hx Neurological Problems: No Hx Concentration Difficulty: Yes Review of Systems All Other Systems: negative except mentioned in HPI Physical Exam Vital Signs Date Time Temp Pulse Resp B/P (MAP) Pulse Ox O2 Delivery O2 Flow Rate FiO2 08/25/20 13:38 98.1 86 20 122/71 (88) 99 Room Air General Appearance: well appearing, no apparent distress, alert, GCS 15 Head: normocephalic, atraumatic ENT: hearing grossly normal, normal voice Neck: full range of motion, supple Respiratory: lungs clear, no respiratory distress, speaking full sentences Cardiovascular #1: normal inspection, regular rate, rhythm Musculoskeletal: normal inspection, normal range of motion, no calf tenderness Neurologic: alert, motor strength/tone normal, digital marketing specialist III-XII nml as tested, oriented x3, normal gait Psychiatric: mood/affect normal Skin: no rash Medical Decision Making Diagnostic Impression: Primary Impression: Leg pain ER Course Patient presents for leg pain. Differential diagnosis include was not limited to foreign body, fracture, soft tissue infection among others. X imaging was ordered to patient's recent questionable x-ray abnormality to evaluate for possible progression. There does not appear to be any evidence of erythema or any signs of current infection.Patient does not appear to require any new medications. X-ray imaging did not show any evidence of free air. Patient was advised to follow-up with primary care physician for recheck. This medical record is generated with [employer] security operations center analyst software. There may be some security operations center analyst discrepancies related to use of this software Last Vital Signs Date Time Temp Pulse Resp B/P (MAP) Pulse Ox O2 Delivery O2 Flow Rate FiO2 08/25/20 13:38 98.1 86 20 122/71 (88) 99 Room Air Status: improved Disposition: HOME, SELF-CARE Condition: Stable Referrals: NON PHYSICIAN (PCP) Fransisco Juarez MD Aug 25, 2020 13:55
--- NOTE | 2020-08-25 15:11 | Diagnostic Imaging Report ---
EXAM: XR Right Tibia and Fibula, 2 Views CLINICAL HISTORY: PAIN TECHNIQUE: Frontal and lateral views of the right tibia and fibula. COMPARISON: Right tib-fib radiographs on 08/14/2020 FINDINGS: Bones/joints: No displaced fracture or dislocation identified. Joint space is maintained. No bony lesion. Soft tissues: Soft tissue swelling again noted in the medial right proximal and mid lower leg. IMPRESSION: 1. No displaced fracture or dislocation identified. 2. Soft tissue swelling again noted in the medial right proximal and mid lower leg.
[2020-08-25 15:17] VITALS: BP 132/89
--- NOTE | 2020-08-25 15:19 | NUR ---
ED Nurse Note: pt resting in bed. stable. on monitor. pt states uncomfortable feeling in RLE, refusing pain medication. pt states it is manageable.
[2020-08-25] MEDS ORDERED: IBUPROFEN600 M1 ORAL (15:28)
[2020-08-25 15:33] VITALS: BP 138/67
--- NOTE | 2020-08-25 15:35 | NUR ---
ER DISCHARGE NOTE: Patient is cleared to be discharged per ERMD, pt is aox4, on room air, with stable vital signs. pt was given dc and prescription instructions, pt was able to verbalize understanding, pt id band removed. pt is able to ambulate with steady gait. pt took all belongings. to call pt with results
== END 2020-08-25 15:35 | disposition home or self-care (01) ==
LOC: EMR 13:42
DX: M79.604 Pain in right leg (principal)
CPT/HCPCS: 73590; Z7502; 99283